=== PATIENT | male | born 1955 | race Caucasian/White ===

== ENCOUNTER 2023-08-08 03:38 | Emergency (ER) | payer MEDICARE, SELFPAY ==
[2023-08-08] VITALS (10 sets, daily range): BP systolic 116–179; BP diastolic 69–105; PULSE 77–105; RESP 15–29; TEMP 36.5–36.7; O2SAT 90–99; BMI 28.7
--- NOTE | 2023-08-08 03:39 | CT_ITS ---
PROCEDURE INFORMATION: Exam: CTA Chest With Contrast Exam date and time: 08/08/2023 3:48 AM Age: 67 years old Clinical indication: Other: Abd and chest pain radiating to back TECHNIQUE: Imaging protocol: Computed tomographic angiography of the chest with contrast. Exam focused on the arteries. 3D rendering (Not supervised by radiologist): MIP and/or 3D reconstructed images were created by the technologist. Radiation optimization: All CT scans at this facility use at least one of these dose optimization techniques: automated exposure control; mA and/or kV adjustment per patient size (includes targeted exams where dose is matched to clinical indication); or iterative reconstruction. Contrast material: ISOUVE 370; Contrast volume: 100 ml; Contrast route: INTRAVENOUS (IV); COMPARISON: CT ANGIO ABDOMEN PELVIS 08/08/2023 03:48 FINDINGS: Pulmonary arteries: Normal. No pulmonary emboli. Aorta: The aorta demonstrates mild atherosclerotic disease. No aortic dissection. Lungs: Mild centrilobular and paraseptal emphysema. Mild scarring and atelectasis in the lower lungs. Pleural spaces: Unremarkable. No pneumothorax. No pleural effusion. Heart: Unremarkable. No cardiomegaly. No pericardial effusion. Lymph nodes: Unremarkable. No enlarged lymph nodes. Bones/joints: Unremarkable. No acute fracture. Soft tissues: Unremarkable. Other findings: Please see separate report for abdomen/pelvis. Stigmata of old granulomatous disease. IMPRESSION: No aortic dissection. COMMENTS: The presence of pulmonary emphysema on CT is an independent risk factor for lung cancer. In the absence of a history or active diagnosis of lung cancer, it is recommended that this patient with emphysema be evaluated for enrollment in a low dose CT lung cancer screening program.
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
--- NOTE | 2023-08-08 03:43 | ED_ITS ---
Discharge Plan Disposition Patient Disposition: Home, Self-Care Chief Complaint: Abdominal Pain Prescriptions Prescriptions: No Action aspirin 81 mg Tablet,Chewable 81 mg PO DAILY metformin 1,000 mg Tablet 1,500 mg PO BID ascorbic acid (vitamin C) [Vitamin C] 1,000 mg Tablet 1 g PO BID carvedilol 12.5 mg Tablet 12.5 mg PO BID Rx Instructions: must administer with a meal/food glipizide 10 mg Tablet 10 mg PO BID ferrous sulfate 325 mg (65 mg iron) Tablet 325 mg PO BID lisinopril 2.5 mg Tablet 2.5 mg PO DAILY vitamin E 1,000 unit Tablet 1 tab PO DAILY Centrum Silver Tablet 1 tab PO DAILY fenofibrate 150 mg Capsule 150 mg PO DAILY Ozempic 1 mg/dose (4 mg/3 mL) Pen Injector 1 mg SQ WEEKLY Referrals Follow up/Referrals: Frandy Daigle MD [Staff Physician] - See instructions (mild hematuria) Activity Restrictions/Add. Instructions Additional Instructions/Restrictions: At this time it was felt you are safe to be discharged home. If new or worsening symptoms please do not hesitate to return the emergency department. Please continue to follow-up with your urologist and manager strategic alliances as discussed. Clinical Impressions Clinical Impression: Acute abdominal pain, Hematuria, Chest pain Instructions Patient Instructions: DI for Acute Abdominal Pain Discharge ED Provider: Armando Sanders General Adult HPI <Nika Marley MD - Last Filed: 08/08/23 06:48> General Chief complaint: Abdominal Pain Stated complaint: abd pain radiating to back and up into chest Time Seen by Provider: 08/08/23 03:39 History of Present Illness HPI narrative: 67-year-old male presents to the ER for concerns of acute onset abdominal and chest pain. Patient states he had similar pain 2 days ago in his abdomen but it spontaneously resolved. He states this pain woke him up approximately 2 hours ago starting in his epigastric region. He states it now radiates both down and up as well as to his back. He states he took a nitroglycerin without resolution of pain and came to the ER. He has not had any vomiting but states he has mild nausea, most recent bowel movement was yesterday, no history of diarrhea or constipation, nonbloody, nonmelanotic stool. Patient did just travel back from [place]. He has 1 cardiac stent, no blood thinners. No dizziness, no numbness, tingling, weakness. Related Data Home Medications Medication Instructions Recorded Confirmed ascorbic acid (vitamin C) 1,000 mg 1 g PO BID 08/08/23 08/08/23 tablet (Vitamin C) aspirin 81 mg chewable tablet 81 mg PO DAILY 08/08/23 08/08/23 carvedilol 12.5 mg tablet 12.5 mg PO BID 08/08/23 08/08/23 fenofibrate 150 mg capsule 150 mg PO DAILY 08/08/23 08/08/23 ferrous sulfate 325 mg (65 mg 325 mg PO BID 08/08/23 08/08/23 iron) tablet glipizide 10 mg tablet 10 mg PO BID 08/08/23 08/08/23 lisinopril 2.5 mg tablet 2.5 mg PO DAILY 08/08/23 08/08/23 metformin 1,000 mg tablet 1,500 mg PO BID 08/08/23 08/08/23 xpoiuxnwisjw-[id number]-xglivw tablet 1 tab PO DAILY 08/08/23 08/08/23 semaglutide 1 mg/dose (4 mg/3 mL) 1 mg SQ WEEKLY 08/08/23 08/08/23 subcutaneous pen injector (Ozempic) vitamin E 1,000 unit tablet 1 tab PO DAILY 08/08/23 08/08/23 Allergies Allergy/AdvReac Type Severity Reaction Status Date / Time No Known Allergies Allergy Verified 08/08/23 03:42 [facility] <Nika Marley MD - Last Filed: 08/08/23 06:48> [facility] Disclaimer: The information contained in this section may have been updated after the patient was seen, as this information can be updated by other users. Social History (Updated 08/08/23 @ 06:48 by Nika Marley MD) Smoking Status: Never smoker alcohol intake: never current occupational status: other Travel in the last 8 weeks: None <Nika Marley MD - Last Filed: 08/08/23 06:48> ROS Obtained: Yes All systems reviewed & no additional complaints except as documented Constitutional Constitutional: Denies chills, Denies fever(s), Denies headache(s) and Denies weakness Eyes Eyes: Denies change in vision ENT Ears, Nose, Mouth, and Throat: Denies dizziness, Denies headache(s), Denies nasal congestion and Denies sore throat Cardiovascular Cardiovascular: Reports chest pain, Denies dyspnea and Denies leg edema Respiratory Respiratory: Denies cough and Denies dyspnea Gastrointestinal Gastrointestingal: Reports abdominal pain and nausea; Denies constipation, diarrhea or vomiting Genitourinary Male Genitourinary: Denies difficulty urinating Musculoskeletal Musculoskeletal: Denies arthralgias, Denies myalgias, Denies numbness and Denies tingling Integumentary/Breasts Skin/Breast: Denies change in pigmentation Neurologic Neurologic: Denies dizziness, Denies headache(s), Denies numbness, Denies tingling and Denies weakness Physical Exam <Nika Marley MD - Last Filed: 08/08/23 06:48> General General appearance: alert and in no apparent distress Head Head exam: atraumatic and normocephalic Eye Eye exam: Present PERRL and EOMI ENT ENT exam: Present mucous membranes moist Neck Neck exam: Present normal inspection and full ROM Chest Chest inspection: Present symmetric chest wall rise Respiratory Respiratory exam: Present normal lung sounds bilaterally; Absent respiratory distress, wheezes or stridor Cardiovascular Cardiovascular exam: Present regular rate and normal rhythm Abdominal Exam Abdominal exam: Present soft, tenderness (diffuse) and guarding; Absent distention, rebound or rigidity Extremities Exam Extremities exam: Present full ROM Neurological Exam Neurological exam: Present alert and oriented X3; Absent motor sensory deficit Psychiatric Psychiatric exam: Present normal affect and normal mood Skin Skin exam: Present warm and dry Medical Decision Making <Nika Marley MD - Last Filed: 08/08/23 06:48> [place] Inquiry Pt receiving controlled substance: No Vital Signs: 08/08/23 03:39 08/08/23 04:02 08/08/23 04:10 Temperature 97.7 F Temperature Source Oral Pulse Rate 77 85 Pulse Rate [Right] 78 Respiratory Rate 22 27 H 15 Blood Pressure 175/96 H 179/105 H Blood Pressure [Right Arm] 146/91 H Blood Pressure Mean [Right Arm] 109 Blood Pressure Source [Right Arm] Automatic Cuff Blood Pressure Position [Right Arm] Sitting 02 Sat by Pulse Oximetry 99 98 96 Oxygen Delivery Method Room Air Room Air Nasal Cannula Oxygen Flow Rate (LPM) 08/08/23 04:30 08/08/23 05:03 08/08/23 05:30 Temperature Temperature Source Pulse Rate 84 91 H 95 H Pulse Rate [Right] Respiratory Rate 20 17 29 H Blood Pressure 178/105 H 136/73 154/97 H Blood Pressure [Right Arm] Blood Pressure Mean [Right Arm] Blood Pressure Source [Right Arm] Blood Pressure Position [Right Arm] 02 Sat by Pulse Oximetry 95 90 L 94 L Oxygen Delivery Method Nasal Cannula Room Air Oxygen Flow Rate (LPM) 08/08/23 06:00 08/08/23 06:30 08/08/23 07:00 Temperature Temperature Source Pulse Rate 99 H 103 H 105 H Pulse Rate [Right] Respiratory Rate 22 19 17 Blood Pressure 154/78 H 133/78 116/69 Blood Pressure [Right Arm] Blood Pressure Mean [Right Arm] Blood Pressure Source [Right Arm] Blood Pressure Position [Right Arm] 02 Sat by Pulse Oximetry 97 96 94 L Oxygen Delivery Method Nasal Cannula Nasal Cannula Nasal Cannula Oxygen Flow Rate (LPM) 3 Lab Data Lab Results 08/08/23 03:44: WBC 6.2, RBC 4.90, Hgb 15.1, Hct 46.2, MCV 94.3 H, MCH 30.8, MCHC 32.7, RDW 14.5, Plt Count 287, MPV 7.6, Neut % (Auto) 65.8, Lymph % (Auto) 22.1, [place] % (Auto) 8.3, Eos % (Auto) 3.2, Baso % (Auto) 0.7, Neut # (Auto) 4.1, Lymph # (Auto) 1.4, [place] # (Auto) 0.5, Eos # (Auto) 0.2, Baso # (Auto) 0.0, PT 10.9, INR 1.01, Sodium 136, Potassium 4.4, Chloride 101, Carbon Dioxide 28, Anion Gap 11.4, BUN 21 H, Creatinine 1.30 H, Estimated Creat Clear 74, Estimated GFR 55 L, Est GFR ( Amer) 66, Glucose 200 H, Lactate 2.2 H, Calcium 9.7, Total Bilirubin 0.6, AST 30, ALT 29, Alkaline Phosphatase 38, Total Creatine Kinase 98, CK-MB (CK-2) 2.0, CK-MB (CK-2) Rel Index 2.0, Troponin I < 0.01, Total Protein 7.6, Albumin 4.6, Globulin 3.0, Albumin/Globulin Ratio 1.5, Lipase 107 08/08/23 04:52: Urine Color Yellow, Urine Appearance Clear, Urine pH 7.0, Ur Specific [place] 1.010, Urine Protein Negative, Urine Glucose (UA) Negative, Urine Ketones Negative, Urine Blood 2+, Urine Nitrate Negative, Urine Bilirubin Negative, Urine Urobilinogen 0.2, Ur Leukocyte Esterase Negative, Urine RBC 10- 20, Urine WBC None, Ur Squamous Epith Cells Occasional, Urine Bacteria Trace 08/08/23 06:40: Troponin I < 0.01 08/08/23 06:45: Lactate 2.2 H 08/08/23 03:44 08/08/23 03:44 Orders (Tests/Meds): ED MEDICATIONS Generic Name Dose Route Start Last Admin Trade Name Freq PRN Reason Stop Dose Admin Sodium Chloride 10 ml 08/08/23 04:08 08/08/23 04:10 Sodium Chloride 0.9% 10ml Syr (Rad Only) IV 09/07/23 04:07 10 ml NEEDED PRN Administration Maintain IV Site Discontinued Medications Generic Name Dose Route Start Last Admin Trade Name Freq PRN Reason Stop Dose Admin Acetaminophen 1,000 mg 08/08/23 04:47 08/08/23 04:48 Acetaminophen 1,000mg/100ml Vial IV 08/08/23 04:48 1,000 mg ONCE ONE Administration Belladonna Alkaloids 60 ml 08/08/23 04:34 08/08/23 04:40 Belladonna Alkaloids 60 Ml Ml PO 08/08/23 04:35 60 ml ONCE ONE Administration Lactated Ringer's 1,000 mls @ 999 mls/hr 08/08/23 04:12 08/08/23 04:18 Lactated Ringer's 1000 Ml Bag IV 08/08/23 05:12 999 mls/hr .Q1H1M ONE Administration Iopamidol 100 ml 08/08/23 04:08 08/08/23 04:09 Iopamidol-370 (76%);100ml Bottle IV 08/08/23 04:09 100 ml ONCE ONE Administration Morphine Sulfate 4 mg 08/08/23 03:39 08/08/23 03:50 Morphine 4mg/Ml Syringe IV 08/08/23 03:40 4 mg ONCE ONE Administration Morphine Sulfate 4 mg 08/08/23 04:04 08/08/23 04:07 Morphine 4mg/Ml Syringe IV 08/08/23 04:05 4 mg ONCE ONE Administration Ondansetron HCl 4 mg 08/08/23 03:39 08/08/23 03:50 Ondansetron 4mg/2ml Vial IV 08/08/23 03:40 4 mg ONCE ONE Administration Sodium Chloride 50 ml 08/08/23 04:08 08/08/23 04:09 0.9 % Sodium Chloride 50 Ml Vial IV 08/08/23 04:09 50 ml ONCE ONE Administration ORDERS Category Date Time Status CT angio abdomen pelvis Stat Cat Scan 08/08/23 03:39 Completed CTA Chest [CT angio chest - dissection] Stat Cat Scan 08/08/23 03:39 Completed Cardiac Enzymes Stat Lab 08/08/23 03:44 Completed Complete Blood Count Auto Diff Stat Lab 08/08/23 03:44 Completed Comprehensive Metabolic Panel Stat Lab 08/08/23 03:44 Completed Lactic Acid Stat Lab 08/08/23 03:44 Completed Lactic Acid Stat Lab 08/08/23 06:45 Completed Lipase Stat Lab 08/08/23 03:44 Completed Prothrombin Time INR Stat Lab 08/08/23 03:44 Completed Troponin I Q3H Lab 08/08/23 06:40 Completed Troponin I Q3H Lab 08/08/23 10:45 Ordered Urinalysis and Microscopic Stat Lab 08/08/23 04:52 Completed Medical Decision Narrative: In summary, this 67-year-old male presents to the emergency department today with chest pain, abdominal pain radiating to the back, severe onset that woke him up from sleep 2 hours prior to arrival. Comorbidities of current condition include history of coronary stent, patient also takes Ozempic. He is increased his overall morbidity. He takes aspirin daily but no other blood thinners. On initial evaluation patient is hemodynamically stable, afebrile, clearly having abdominal pain, diffuse tenderness with guarding, no rebound, cardiopulmonary exam reassuring. Differential diagnosis includes but is not limited to ACS, dissection, mesenteric ischemia, bowel obstruction, pancreatitis, biliary pathology, I considered the possibility of PE with recent travel, however he does not have any leg swelling or findings of DVT on exam, he is not having any shortness of breath. Based on these concerns, I ordered cardiac workup, labs, CT angiography of the chest, abdomen, pelvis.. ECG personally interpreted demonstrates normal sinus rhythm, rate 76, normal axis, normal OK at 153, normal QTc at 400, no STEMI. Patient received morphine, Zofran for treatment initially. He was immediately taken to CT scan after my assessment for emergent imaging. Labs personally reviewed demonstrate no leukocytosis or anemia, platelets normal at 287, PT/INR normal, CMP with normal sodium, potassium, chloride, patient has mild kidney dysfunction, he is receiving IV fluids. He also has lactate elevated at 2.2, fluids are being administered. Lipase normal at 107, reassuring against pancreatitis. Initial troponin undetectably low at less than 0.01. Serial troponins pending. Few red blood cells were present on the urinalysis but there are no findings of infection. Patient does not have any findings of kidney stone on CT scan though I did consider this on my differential as well. He will need outpatient follow-up for slight hematuria. CT angiography of the chest, abdomen, pelvis was personally interpreted, I do not appreciate aortic dissection or mesenteric ischemia. I do not appreciate appendicitis or gallstones, no findings of cholecystitis though the gallbladder is distended. See radiology read for final interpretation. Patient required additional IV morphine for continued severe pain. After reviewing CT findings which do not demonstrate acute surgical pathology, I administered GI cocktail as well. Patient was placed in ED observation at 0450 for serial troponins to rule out evolving myocardial infarction and for continued treatment of abdominal pain. While in ED observation he received IV acetaminophen. He has continued to be on the monitor and recheck frequently. He was placed on nasal cannula due to JG causing desaturations while he slept. He states he is supposed to wear CPAP at home. On reassessment after receiving GI cocktail and IV acetaminophen, he has had significant improvement of symptoms. He is resting comfortably and states his pain is 0 out of 10. Patient handed off to Dr. Sanders at physician shift change for further management disposition pending repeat troponin and repeat lactic acid. <Armando Sanders MD - Last Filed: 08/08/23 07:30> Vital Signs: 08/08/23 03:39 08/08/23 04:02 08/08/23 04:10 Temperature 97.7 F Temperature Source Oral Pulse Rate 77 85 Pulse Rate [Right] 78 Respiratory Rate 22 27 H 15 Blood Pressure 175/96 H 179/105 H Blood Pressure [Right Arm] 146/91 H Blood Pressure Mean [Right Arm] 109 Blood Pressure Source [Right Arm] Automatic Cuff Blood Pressure Position [Right Arm] Sitting 02 Sat by Pulse Oximetry 99 98 96 Oxygen Delivery Method Room Air Room Air Nasal Cannula Oxygen Flow Rate (LPM) 08/08/23 04:30 08/08/23 05:03 08/08/23 05:30 Temperature Temperature Source Pulse Rate 84 91 H 95 H Pulse Rate [Right] Respiratory Rate 20 17 29 H Blood Pressure 178/105 H 136/73 154/97 H Blood Pressure [Right Arm] Blood Pressure Mean [Right Arm] Blood Pressure Source [Right Arm] Blood Pressure Position [Right Arm] 02 Sat by Pulse Oximetry 95 90 L 94 L Oxygen Delivery Method Nasal Cannula Room Air Oxygen Flow Rate (LPM) 08/08/23 06:00 08/08/23 06:30 08/08/23 07:00 Temperature Temperature Source Pulse Rate 99 H 103 H 105 H Pulse Rate [Right] Respiratory Rate 22 19 17 Blood Pressure 154/78 H 133/78 116/69 Blood Pressure [Right Arm] Blood Pressure Mean [Right Arm] Blood Pressure Source [Right Arm] Blood Pressure Position [Right Arm] 02 Sat by Pulse Oximetry 97 96 94 L Oxygen Delivery Method Nasal Cannula Nasal Cannula Nasal Cannula Oxygen Flow Rate (LPM) 3 Lab Data Lab Results 08/08/23 03:44: WBC 6.2, RBC 4.90, Hgb 15.1, Hct 46.2, MCV 94.3 H, MCH 30.8, MCHC 32.7, RDW 14.5, Plt Count 287, MPV 7.6, Neut % (Auto) 65.8, Lymph % (Auto) 22.1, [place] % (Auto) 8.3, Eos % (Auto) 3.2, Baso % (Auto) 0.7, Neut # (Auto) 4.1, Lymph # (Auto) 1.4, [place] # (Auto) 0.5, Eos # (Auto) 0.2, Baso # (Auto) 0.0, PT 10.9, INR 1.01, Sodium 136, Potassium 4.4, Chloride 101, Carbon Dioxide 28, Anion Gap 11.4, BUN 21 H, Creatinine 1.30 H, Estimated Creat Clear 74, Estimated GFR 55 L, Est GFR ( Amer) 66, Glucose 200 H, Lactate 2.2 H, Calcium 9.7, Total Bilirubin 0.6, AST 30, ALT 29, Alkaline Phosphatase 38, Total Creatine Kinase 98, CK-MB (CK-2) 2.0, CK-MB (CK-2) Rel Index 2.0, Troponin I < 0.01, Total Protein 7.6, Albumin 4.6, Globulin 3.0, Albumin/Globulin Ratio 1.5, Lipase 107 08/08/23 04:52: Urine Color Yellow, Urine Appearance Clear, Urine pH 7.0, Ur Specific [place] 1.010, Urine Protein Negative, Urine Glucose (UA) Negative, Urine Ketones Negative, Urine Blood 2+, Urine Nitrate Negative, Urine Bilirubin Negative, Urine Urobilinogen 0.2, Ur Leukocyte Esterase Negative, Urine RBC 10- 20, Urine WBC None, Ur Squamous Epith Cells Occasional, Urine Bacteria Trace 08/08/23 06:40: Troponin I < 0.01 08/08/23 06:45: Lactate 2.2 H Orders (Tests/Meds): ED MEDICATIONS Generic Name Dose Route Start Last Admin Trade Name Freq PRN Reason Stop Dose Admin Sodium Chloride 10 ml 08/08/23 04:08 08/08/23 04:10 Sodium Chloride 0.9% 10ml Syr (Rad Only) IV 09/07/23 04:07 10 ml NEEDED PRN Administration Maintain IV Site Discontinued Medications Generic Name Dose Route Start Last Admin Trade Name Freq PRN Reason Stop Dose Admin Acetaminophen 1,000 mg 08/08/23 04:47 08/08/23 04:48 Acetaminophen 1,000mg/100ml Vial IV 08/08/23 04:48 1,000 mg ONCE ONE Administration Belladonna Alkaloids 60 ml 08/08/23 04:34 08/08/23 04:40 Belladonna Alkaloids 60 Ml Ml PO 08/08/23 04:35 60 ml ONCE ONE Administration Lactated Ringer's 1,000 mls @ 999 mls/hr 08/08/23 04:12 08/08/23 04:18 Lactated Ringer's 1000 Ml Bag IV 08/08/23 05:12 999 mls/hr .Q1H1M ONE Administration Iopamidol 100 ml 08/08/23 04:08 08/08/23 04:09 Iopamidol-370 (76%);100ml Bottle IV 08/08/23 04:09 100 ml ONCE ONE Administration Morphine Sulfate 4 mg 08/08/23 03:39 08/08/23 03:50 Morphine 4mg/Ml Syringe IV 08/08/23 03:40 4 mg ONCE ONE Administration Morphine Sulfate 4 mg 08/08/23 04:04 08/08/23 04:07 Morphine 4mg/Ml Syringe IV 08/08/23 04:05 4 mg ONCE ONE Administration Ondansetron HCl 4 mg 08/08/23 03:39 08/08/23 03:50 Ondansetron 4mg/2ml Vial IV 08/08/23 03:40 4 mg ONCE ONE Administration Sodium Chloride 50 ml 08/08/23 04:08 08/08/23 04:09 0.9 % Sodium Chloride 50 Ml Vial IV 08/08/23 04:09 50 ml ONCE ONE Administration ORDERS Category Date Time Status CT angio abdomen pelvis Stat Cat Scan 08/08/23 03:39 Completed CTA Chest [CT angio chest - dissection] Stat Cat Scan 08/08/23 03:39 Completed Cardiac Enzymes Stat Lab 08/08/23 03:44 Completed Complete Blood Count Auto Diff Stat Lab 08/08/23 03:44 Completed Comprehensive Metabolic Panel Stat Lab 08/08/23 03:44 Completed Lactic Acid Stat Lab 08/08/23 03:44 Completed Lactic Acid Stat Lab 08/08/23 06:45 Completed Lipase Stat Lab 08/08/23 03:44 Completed Prothrombin Time INR Stat Lab 08/08/23 03:44 Completed Troponin I Q3H Lab 08/08/23 06:40 Completed Troponin I Q3H Lab 08/08/23 10:45 Ordered Urinalysis and Microscopic Stat Lab 08/08/23 04:52 Completed HEART Score History (anamnesis): Moderately suspicious ECG: Normal Age: >65 years Risk factors: Atherosclerosis history Troponin: </= normal limit HEART Score: 5 Medical Decision Narrative: In summary, this 67-year-old male presents to the emergency department today with chest pain, abdominal pain radiating to the back, severe onset that woke him up from sleep 2 hours prior to arrival. Comorbidities of current condition include history of coronary stent, patient also takes Ozempic. He is increased his overall morbidity. He takes aspirin daily but no other blood thinners. On initial evaluation patient is hemodynamically stable, afebrile, clearly having abdominal pain, diffuse tenderness with guarding, no rebound, cardiopulmonary exam reassuring. Differential diagnosis includes but is not limited to ACS, dissection, mesenteric ischemia, bowel obstruction, pancreatitis, biliary pathology, I considered the possibility of PE with recent travel, however he does not have any leg swelling or findings of DVT on exam, he is not having any shortness of breath. Based on these concerns, I ordered cardiac workup, labs, CT angiography of the chest, abdomen, pelvis.. ECG personally interpreted demonstrates normal sinus rhythm, rate 76, normal axis, normal [place] at 153, normal QTc at 400, no STEMI. Patient received morphine, Zofran for treatment initially. He was immediately taken to CT scan after my assessment for emergent imaging. Labs personally reviewed demonstrate no leukocytosis or anemia, platelets normal at 287, PT/INR normal, CMP with normal sodium, potassium, chloride, patient has mild kidney dysfunction, he is receiving IV fluids. He also has lactate elevated at 2.2, fluids are being administered. Lipase normal at 107, reassuring against pancreatitis. Initial troponin undetectably low at less than 0.01. Serial troponins pending. Few red blood cells were present on the urinalysis but there are no findings of infection. Patient does not have any findings of kidney stone on CT scan though I did consider this on my differential as well. He will need outpatient follow-up for slight hematuria. CT angiography of the chest, abdomen, pelvis was personally interpreted, I do not appreciate aortic dissection or mesenteric ischemia. I do not appreciate appendicitis or gallstones, no findings of cholecystitis though the gallbladder is distended. See radiology read for final interpretation. Patient required additional IV morphine for continued severe pain. After reviewing CT findings which do not demonstrate acute surgical pathology, I administered GI cocktail as well. Patient was placed in ED observation at 0450 for serial troponins to rule out evolving myocardial infarction and for continued treatment of abdominal pain. While in ED observation he received IV acetaminophen. He has continued to be on the monitor and recheck frequently. He was placed on nasal cannula due to JG causing desaturations while he slept. He states he is supposed to wear CPAP at home. On reassessment after receiving GI cocktail and IV acetaminophen, he has had significant improvement of symptoms. He is resting comfortably and states his pain is 0 out of 10. Patient handed off to Dr. Sanders at physician shift change for further management disposition pending repeat troponin and repeat lactic acid. Armando Sanders: Upon assumption of care patient is hemodynamically stable. Workup reviewed by me, hematologic labs are nonactionable, no significant leukocytosis, mildly elevated creatinine, stable minimally elevated serial lactates, serial troponins undetectably low. Urinalysis interpreted by me, hematuria without evidence of infection. CTA chest shows no evidence of aortic dissection. CT abdomen pelvis shows nonspecific bowel wall thickening, no aortic dissection. Upon repeat evaluation patient was resting in bed with oxygen at baseline with significant resolution of symptoms. Urinalysis has microscopic hematuria. Patient is aware of this and has history of bladder cancer status post intervention and follows with his urologist. Patient will follow-up with urology and cardiology on outpatient basis and is appropriate for discharge at this time. Critical Care <Nika Marley MD - Last Filed: 08/08/23 06:48> Critical Care Time Critical Care Time: No
[2023-08-08] MEDS: ONDANSETRON 4MG/2ML VIAL 4 MG IV (03:50)
[2023-08-08] MEDS: MORPHINE 4MG/ML SYRINGE 4 MG IV ×2 (03:50→04:07)
--- NOTE | 2023-08-08 03:50 | ECG_ITS ---
APPROVED REPORT Exam: Resting ECG HR:76 bpm ECG Measurements Heart Rate 76 AXES OK 153 P 68 QRSd 94 QRS 41 QT 370 T 69 QTc 400 Conclusion SINUS RHYTHM NORMAL ECG UNCONFIRMED REPORT Electronically signed by : ELIF DIAZ, 08/08/2023 04:18:41
--- NOTE | 2023-08-08 03:50 | PC.NURSE ---
Assisted patient via standby assist to restroom at this time. Patient ambulated per patient preference utilizing walker at this time.
[2023-08-08 03:56] LABS: Chloride 101 mmol/L (98-107); Sodium 136 mmol/L (136-145)
[2023-08-08 03:57] LABS: Potassium 4.4 mmoL/L (3.5-5.1)
[2023-08-08 03:59] LABS: Alanine Aminotransferase 29 U/L (12-78); Albumin Level 4.6 g/dl (3.5-5.0); Albumin/Globulin Ratio 1.5 (1.1-1.8); Alkaline Phosphatase 38 U/L (38-126); Anion Gap 11.4 mEq/L (5-15); Aspartate Amino Transferase 30 U/L (17-59); Basophils % 0.7 % (0.1-2.0); Bilirubin,Total 0.6 mg/dl (0.2-1.3); Blood Urea Nitrogen 21 mg/dl (9-20); Carbon Dioxide 28 mmol/L (22.0-30.0); Creatinine Clearance Estimated 74 mL/min (50-200); Eosinophils # 0.2 K/mm3 (0.0-0.4); Eosinophils % 3.2 % (0.1-12.0); Estimated Glomerular Filt Rate 55 ml/min (>60); GFR (African American) 66 ML/MIN (>60); Hematocrit 46.2 % (42.0-52.0); Hemoglobin 15.1 g/dL (14.1-18.0); Lymphocytes # 1.4 K/mm3 (0.7-4.5); Lymphocytes % 22.1 % (10-50); Mean Corpuscular HGB Conc 32.7 g/dL (31.8-35.4); Mean Corpuscular Hemoglobin 30.8 pg (27.0-31.2); Mean Corpuscular Volume 94.3 fl (80-94); Mean Platelet Volume 7.6 fl (7.4-10.4); Monocytes # 0.5 K/mm3 (0.1-1.0); Monocytes % 8.3 % (1.7-9.3); Neutrophils # 4.1 K/mm3 (1.8-7.8); Neutrophils % 65.8 % (37.0-80.0); Platelet Count 287 K/mm3 (142-424); Red Cell Distribution Width 14.5 % (11.5-17.5); Total Protein,Serum 7.6 g/dl (6.3-8.2); White Blood Count 6.2 K/mm3 (4.8-10.8)
[2023-08-08 04:00] LABS: Calcium 9.7 mg/dl (8.4-10.2); Glucose 200 mg/dl (74-100); Lactic Acid 2.2 mmol/L (0.7-2.1)
[2023-08-08 04:03] LABS: Creatine Kinase 98 U/L (55-170); Lipase 107 U/L (23-300)
[2023-08-08 04:04] LABS: INR 1.01 (0.9-1.1); Prothrombin Time 10.9 seconds (10.1-12.5)
[2023-08-08] MEDS: IOPAMIDOL-370 (76%);100ML BOTTLE 100 ML IV (04:09)
[2023-08-08] MEDS: 0.9 % SODIUM CHLORIDE 50 ML VIAL IV (04:09)
[2023-08-08] MEDS: SODIUM CHLORIDE 0.9% 10ML SYR (RAD ONLY) 10 ML IV (04:10)
[2023-08-08 04:15] LABS: Troponin I < 0.01 ng/ml (0.00-0.034)
[2023-08-08] MEDS: LACTATED RINGERS 1000ML 1,000 ML 999 ML IV (04:18)
[2023-08-08] MEDS: BELLADONNA ALKALOIDS 60 ML ML PO (04:40)
[2023-08-08] MEDS: ACETAMINOPHEN 1,000MG/100ML VIAL 1000 MG IV (04:48)
[2023-08-08 04:58] LABS: Microscopic, Urine URINE MICROSCOPIC (MICROSCOPIC)
[2023-08-08 04:59] LABS: Appearance,Urine CLEAR (Clear); Bilirubin,Urine Negative (Negative); Blood, Urine 2+ (Negative); Color,Urine YELLOW (Yellow); Glucose,Urine (UA) Negative (Negative); Ketones,Urine Negative (Negative); Leukocyte Esterase,Urine Negative (Negative); Nitrate,Urine Negative (Negative); Protein,Urine Negative (Negative); Urobilinogen,Urine 0.2 EU/dl (0.2)
[2023-08-08 05:13] LABS: Bacteria,Urine Trace /lpf; Squamous Epithelial Cell,Urine Occasional #/hpf (0-5)
--- NOTE | 2023-08-08 05:17 | PC.NURSE ---
Pt placed on 2lpm via NC due to low o@sat. Improved. CR
--- NOTE | 2023-08-08 06:06 | PC.NURSE ---
Patient is resting with eyes closed in room at this time. Denies any needs at this time. at bedside.
[2023-08-08 07:08] LABS: Lactic Acid 2.2 mmol/L (0.7-2.1)
[2023-08-08 07:13] LABS: Troponin I < 0.01 ng/ml (0.00-0.034)
--- NOTE | 2023-08-08 07:17 | PC.NURSE ---
Rounded on pt. No needs voiced at this time. Pt able to drink water. Call light remains within reach
--- NOTE | 2023-08-08 07:26 | PC.NURSE ---
Dr. Sanders at BS to update pt on results
[2023-08-08 07:49] LABS: Reflex Lactic Add Lactic Reflex
== END 2023-08-08 07:43 | disposition home or self-care (01) ==
PROVIDERS: Emergency Medicine; Emergency Provider Emergency Medicine
DX: R10.13 Epigastric pain (principal); R07.9 Chest pain, unspecified; R31.9 Hematuria, unspecified; G47.33 Obstructive sleep apnea (adult) (pediatric); Z86.79 Personal history of other diseases of the circulatory system; Z95.5 Presence of coronary angioplasty implant and graft
CPT/HCPCS: 71275; 74174; 80053; 81001; 82550; 82553; 83605; 83690; 84484; 85025; 85610; 93005; 96361; 96374; 96375; 99285; J0131; J2270; J2405; J7120; Q9967

== ENCOUNTER 2023-12-14 00:22 | Observation (INO) | payer MEDICARE, SELFPAY ==
[2023-12-14] VITALS (9 sets, daily range): BP systolic 116–186; BP diastolic 77–116; PULSE 87–113; RESP 16–22; TEMP 36.6–36.9; O2SAT 91–99; BMI 28.8; BMI 29.0
--- NOTE | 2023-12-14 00:40 | CT_ITS ---
PROCEDURE INFORMATION: Exam: CTA Chest With Contrast Exam date and time: 12/14/2023 12:54 AM Age: 68 years old Clinical indication: Pain; Chest pressure; Additional info: Severe chest/abd pain TECHNIQUE: Imaging protocol: Computed tomographic angiography of the chest with contrast. Exam focused on the arteries. 3D rendering (Not supervised by radiologist): MIP and/or 3D reconstructed images were created by the technologist. Radiation optimization: All CT scans at this facility use at least one of these dose optimization techniques: automated exposure control; mA and/or kV adjustment per patient size (includes targeted exams where dose is matched to clinical indication); or iterative reconstruction. Contrast material: ISOVUE; Contrast volume: 80 ml; Contrast route: INTRAVENOUS (IV); COMPARISON: CT ANGIO CHEST 08/08/2023 3:48 AM FINDINGS: Pulmonary arteries: Suboptimal evaluation of the peripheral pulmonary artery branches due to suboptimal contrast bolus timing and motion artifact. Otherwise, no evidence of pulmonary emboli. Aorta: Atherosclerotic calcification. No aortic aneurysm. No aortic dissection. Lungs: Unchanged 2 mm right upper lobe nodule (image 46, series 5). Unchanged 5 mm right upper lobe pulmonary nodule (image 65, series 5Unchanged scattered benign calcified granulomas of the left lung. Mild centrilobular and paraseptal emphysematous change of the lungs. Small area left lower lobe discoid atelectasis without pulmonary consolidation Pleural spaces: Unremarkable. No pneumothorax. No pleural effusion. Heart: Mild cardiomegaly. Coronary artery calcification noted. No pericardial effusion. Lymph nodes: 2.2 x 0.9 cm right pretracheal mediastinal lymph with fatty hilum. Slight hilar lymph node enlargement bilaterally. Several of the left hilar lymph nodes are calcified. Bones/joints: Degenerative change of the thoracic spine. No acute fracture. Soft tissues: Unremarkable. IMPRESSION: 1. No evidence of aortic aneurysm or dissection. 2. Mild cardiomegaly. Coronary artery calcification. 3. Emphysematous change of the lungs. Mild left lower lobe discoid atelectasis. No pulmonary consolidation. 4. Unchanged subcentimeter pulmonary nodules of the right upper lobe. For patients at low risk (minimal or absent history of smoking and of other known risk factors), no routine follow-up is indicated. For patients at high risk (history of smoking or of other known risk factors), consider optional CT Chest at 12 months. (Reference: Coleman) 5. Partially calcified left hilar lymph nodes and several benign calcified granulomas of the left lung suggestive for prior granulomatous infection. COMMENTS: The presence of pulmonary emphysema on CT is an independent risk factor for lung cancer. In the absence of a history or active diagnosis of lung cancer, it is recommended that this patient with emphysema be evaluated for enrollment in a low dose CT lung cancer screening program. REFERENCES: Coleman Pagan, et al. Guidelines for Management of Incidental Pulmonary Nodules Detected on CT Images: From the Fleischner Society 2017. Radiology. 2017;284(1):228-243.
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
--- NOTE | 2023-12-14 00:42 | ED_ITS ---
Discharge Plan Disposition Patient Disposition: Home, Self-Care Chief Complaint: Abdominal Pain Prescriptions Prescriptions: No Action aspirin 81 mg Tablet,Chewable 81 mg PO DAILY metformin 1,000 mg Tablet 1,500 mg PO BID ascorbic acid (vitamin C) [Vitamin C] 1,000 mg Tablet 1 g PO BID carvedilol 12.5 mg Tablet 12.5 mg PO BID Rx Instructions: must administer with a meal/food glipizide 10 mg Tablet 10 mg PO BID ferrous sulfate 325 mg (65 mg iron) Tablet 325 mg PO BID lisinopril 2.5 mg Tablet 2.5 mg PO DAILY vitamin E 1,000 unit Tablet 1 tab PO DAILY Centrum Silver Tablet 1 tab PO DAILY fenofibrate 150 mg Capsule 150 mg PO DAILY Ozempic 1 mg/dose (4 mg/3 mL) Pen Injector 1 mg SQ WEEKLY Referrals Follow up/Referrals: Provider,Referral, MD [Primary Care Provider] - See instructions Clinical Impressions Clinical Impression: Enteritis, Pancreatic abnormality, Bile duct abnormality, Lung nodule Instructions Patient Instructions: DI for Acute Abdominal Pain Print Language Print Language: Bengali Discharge ED Provider: Praful Allen General Adult HPI General Chief complaint: Abdominal Pain Stated complaint: food poisoning, abd pain, vomiting, diarrhea Time Seen by Provider: 12/14/23 00:25 Mode of Arrival: Wheelchair Source of Information: Patient Limitations: No Limitations Description of Symptoms (Recalled from ER Triage Doc. by RN): pt reporting severe abdomen pain that began 2 hours ago and has vomitted x2. pt reports a bladder surgery last and had his watson cath removed today. History of Present Illness HPI narrative: 68-year-old male presents for generalized abdominal pain. He just recently had a catheter removed. He had bladder cancer and had a procedure several days ago and not Kg where they scraped the cancer off of the inside of the bladder. He reports that he has been feeling well from that perspective and does not have any significant lower abdominal pain. He reports that his pain is sharp, generalized, intermittent. Reports vomiting at home. Denies diarrhea or constipation. Related Data Home Medications ?Medication ?Instructions ?Recorded ?Confirmed ascorbic acid (vitamin C) 1,000 mg 1 g PO BID 08/08/23 08/08/23 tablet (Vitamin C) aspirin 81 mg chewable tablet 81 mg PO DAILY 08/08/23 08/08/23 carvedilol 12.5 mg tablet 12.5 mg PO BID 08/08/23 08/08/23 fenofibrate 150 mg capsule 150 mg PO DAILY 08/08/23 08/08/23 ferrous sulfate 325 mg (65 mg 325 mg PO BID 08/08/23 08/08/23 iron) tablet glipizide 10 mg tablet 10 mg PO BID 08/08/23 08/08/23 lisinopril 2.5 mg tablet 2.5 mg PO DAILY 08/08/23 08/08/23 metformin 1,000 mg tablet 1,500 mg PO BID 08/08/23 08/08/23 [id number]-[id number] tablet 1 tab PO DAILY 08/08/23 08/08/23 semaglutide 1 mg/dose (4 mg/3 mL) 1 mg SQ WEEKLY 08/08/23 08/08/23 subcutaneous pen injector (Ozempic) vitamin E 1,000 unit tablet 1 tab PO DAILY 08/08/23 08/08/23 Allergies Allergy/AdvReac Type Severity Reaction Status Date / Time No Known Allergies Allergy Verified 08/08/23 03:42 [facility] Disclaimer: The information contained in this section may have been updated after the patient was seen, as this information can be updated by other users. Social History (Updated 08/08/23 @ 06:48 by Nika Marley MD) Smoking Status: Never smoker alcohol intake: never current occupational status: other Travel in the last 8 weeks: None ROS Obtained: Yes All systems reviewed & no additional complaints except as documented Physical Exam General General appearance: alert and in no apparent distress Head Head exam: atraumatic and normocephalic Eye Eye exam: Present normal appearance, PERRL and EOMI ENT ENT exam: Present normal oropharynx and normal external ear exam Neck Neck exam: Present normal inspection and full ROM Chest Chest inspection: Present normal inspection and symmetric chest wall rise; Absent tenderness Respiratory Respiratory exam: Present normal lung sounds bilaterally; Absent respiratory distress Cardiovascular Cardiovascular exam: Present regular rate and normal rhythm Abdominal Exam Abdominal exam: Present soft and tenderness (Generalized); Absent distention or guarding Extremities Exam Extremities exam: Present normal inspection; Absent edema or joint swelling Back Exam Back exam: Present normal inspection; Absent tenderness Neurological Exam Neurological exam: Present alert and oriented X3; Absent motor sensory deficit Psychiatric Psychiatric exam: Present normal affect and normal mood Skin Skin exam: Present warm, dry and normal color Lymphatic Lymphatic Findings: no adenopathy Medical Decision Making Medical Records Medical records reviewed: Yes I reviewed the patient's medical records. Screening: Per USPSTF and CDC recommendations, given the prevalence of disease in our region, it is our hospital?s policy to screen for HIV and viral Hepatitis for all patients aged 18 and over and those with ongoing risk factors. Hugo Inquiry Pt receiving controlled substance: No Hugo was queried for this patient: No Vital Signs: 12/14/23 00:24 12/14/23 01:00 12/14/23 01:30 Temperature 98.5 F Temperature Source Oral Pulse Rate 93 H 93 H Pulse Rate [Right] 87 Respiratory Rate 22 Blood Pressure 176/100 H 172/92 H Blood Pressure [Right Arm] 186/116 H Blood Pressure Mean [Right Arm] 139 02 Sat by Pulse Oximetry 98 99 98 Oxygen Delivery Method Room Air 12/14/23 01:51 Temperature Temperature Source Pulse Rate 91 H Pulse Rate [Right] Respiratory Rate Blood Pressure 165/96 H Blood Pressure [Right Arm] Blood Pressure Mean [Right Arm] 02 Sat by Pulse Oximetry 96 Oxygen Delivery Method Lab Data Lab results reviewed: Yes I reviewed the patient's lab results. Lab Results 12/14/23 00:30: WBC 7.9, RBC 5.04, Hgb 15.4, Hct 45.3, MCV 89.9, MCH 30.5, MCHC 34.0, RDW 13.9, Plt Count 283, MPV 6.6 L, Neut % (Auto) 77.5, Lymph % (Auto) 10.6, Carbon % (Auto) 7.5, Eos % (Auto) 3.6, Baso % (Auto) 0.7, Neut # (Auto) 6.1, Lymph # (Auto) 0.8, Carbon # (Auto) 0.6, Eos # (Auto) 0.3, Baso # (Auto) 0.1, Sodium 136, Potassium 5.1, Chloride 104, Carbon Dioxide 27, Anion Gap 10.1, BUN 14, Creatinine 0.90, Estimated Creat Clear 93, Estimated GFR 84, Est GFR ( Amer) 101, Glucose 219 H, Calcium 9.4, Total Bilirubin 0.9, AST 48, ALT 37, Alkaline Phosphatase < 20 L, Troponin I 0.02, Total Protein 7.7, Albumin 4.7, Globulin 3.0, Albumin/Globulin Ratio 1.6, Lipase 92, HIV 1&2 Antibody Rapid Nonreactive 12/14/23 00:30 12/14/23 00:30 Orders (Tests/Meds): ED MEDICATIONS Generic Name Dose Route Start Last Admin Trade Name Lamine PRN Reason Stop Dose Admin Ondansetron HCl 4 mg 12/14/23 03:30 12/14/23 03:30 Ondansetron 4mg/2ml Vial IV 12/14/23 03:31 4 mg ONCE ONE Administration Discontinued Medications Generic Name Dose Route Start Last Admin Trade Name Lamine PRN Reason Stop Dose Admin Belladonna Alkaloids 60 ml 12/14/23 01:44 12/14/23 01:44 Belladonna Alkaloids 60 Ml Ml PO 12/14/23 01:45 60 ml ONCE ONE Administration Piperacillin Sod/Tazobactam 100 mls @ 200 mls/hr 12/14/23 01:28 12/14/23 01:35 Sod 4.5 gm/ Sodium Chloride IV 12/14/23 01:57 Not Given ONCE ONE Iopamidol 80 ml 12/14/23 01:01 12/14/23 01:02 Iopamidol-370 (76%);100ml Bottle IV 12/14/23 01:02 80 ml ONCE ONE Administration Morphine Sulfate 4 mg 12/14/23 00:40 12/14/23 00:46 Morphine 4mg/Ml Syringe IV 12/14/23 00:41 4 mg ONCE ONE Administration Morphine Sulfate 4 mg 12/14/23 01:38 12/14/23 01:40 Morphine 4mg/Ml Syringe IV 12/14/23 01:39 4 mg ONCE ONE Administration Ondansetron HCl 4 mg 12/14/23 00:40 12/14/23 00:46 Ondansetron 4mg/2ml Vial IV 12/14/23 00:41 4 mg ONCE ONE Administration Oxycodone HCl 5 mg 12/14/23 03:26 12/14/23 03:28 Oxycodone 5mg Immediate Release Tablet PO 12/14/23 03:27 5 mg ONCE ONE Administration Sodium Chloride 50 ml 12/14/23 01:01 12/14/23 01:02 0.9 % Sodium Chloride 50 Ml Vial IV 12/14/23 01:02 50 ml ONCE ONE Administration Sodium Chloride 10 ml 12/14/23 01:01 12/14/23 01:02 Sodium Chloride 0.9% 10ml Syr (Rad Only) IV 12/14/23 01:02 10 ml ONCE ONE Administration ORDERS Category Date Time Status CT angio abdomen pelvis Stat Cat Scan 12/14/23 00:41 Completed CTA Chest [CT angio chest - dissection] Stat Cat Scan 12/14/23 00:40 Completed CBC w/Auto Diff [Complete Blood Count Auto Diff] Stat Lab 12/14/23 00:30 Completed CMP [Comprehensive Metabolic Panel] Stat Lab 12/14/23 00:30 Completed HIV (1&2) Antibody Rapid Stat Lab 12/14/23 00:30 Completed Hep C Ab with Reflex to RNA Stat Lab 12/14/23 00:30 Received Lipase Stat Lab 12/14/23 00:30 Completed Troponin I Q3H Lab 12/14/23 00:30 Completed Troponin I Q3H Lab 12/14/23 03:45 Ordered UA [Urinalysis and Microscopic] Stat Lab 12/14/23 03:26 Ordered Medical Decision Narrative: 68-year-old male with history of recent bladder scraping secondary to bladder cancer presents for generalized abdominal pain. History was obtained via interactive discussion with patient, family. On arrival, patient is [afebrile, hemodynamically stable, satting appropriately, alert, oriented x4, GCS 15], moving all extremities spontaneously. Full physical exam performed and significant for generalized abdominal tenderness Differential includes but is not limited to postoperative complication from recent bladder surgery, obstruction, perforation, gallbladder pathology, acute aortic syndrome. Patient was given morphine and Zofran IV for symptomatic management and correction of underlying abnormalities. Workup initiated including emergent CTA chest abdomen and pelvis, CBC CMP lipase UA. On re-evaluation, patient continues to require intermittent doses of morphine for pain control and additional Zofran. Laboratory workup independently interpreted by me and significant for no significant leukocytosis, normal LFTs and bilirubin, normal renal function, negative lipase. Imaging independently interpreted by me and significant for findings consistent with enteritis. It also shows a stable irregularity of the pancreas and some reticulation of the fat around the proximal common bile duct. See radiology read for full review of final results. [] was considered, but deemed unnecessary due to []. Given patient history, exam and workup, patient's presentation most likely represents []. Procedures Risk/Benefits of Procedure(s) Were Explained: Yes Critical Care Critical Care Time Critical Care Time: No
[2023-12-14 00:46] LABS: Basophils # 0.1 K/mm3 (0-0.2); Basophils % 0.7 % (0.1-2.0); Eosinophils # 0.3 K/mm3 (0.0-0.4); Eosinophils % 3.6 % (0.1-12.0); Hematocrit 45.3 % (42.0-52.0); Hemoglobin 15.4 g/dL (14.1-18.0); Lymphocytes # 0.8 K/mm3 (0.7-4.5); Lymphocytes % 10.6 % (10-50); Mean Corpuscular Hemoglobin 30.5 pg (27.0-31.2); Mean Corpuscular Volume 89.9 fl (80-94); Mean Platelet Volume 6.6 fl (7.4-10.4); Monocytes # 0.6 K/mm3 (0.1-1.0); Monocytes % 7.5 % (1.7-9.3); Neutrophils # 6.1 K/mm3 (1.8-7.8); Neutrophils % 77.5 % (37.0-80.0); Platelet Count 283 K/mm3 (142-424); Red Blood Count 5.04 M/mm3 (4.60-6.20); Red Cell Distribution Width 13.9 % (11.5-17.5); White Blood Count 7.9 K/mm3 (4.8-10.8)
[2023-12-14] MEDS: MORPHINE 4MG/ML SYRINGE 4 MG IV ×3 (00:46→04:25)
[2023-12-14] MEDS: ONDANSETRON 4MG/2ML VIAL 4 MG IV ×3 (00:46→06:40)
[2023-12-14 00:53] LABS: Alanine Aminotransferase 37 U/L (12-78); Albumin Level 4.7 g/dl (3.5-5.0); Albumin/Globulin Ratio 1.6 (1.1-1.8); Anion Gap 10.1 mEq/L (5-15); Aspartate Amino Transferase 48 U/L (17-59); Bilirubin,Total 0.9 mg/dl (0.2-1.3); Blood Urea Nitrogen 14 mg/dl (9-20); Calcium 9.4 mg/dl (8.4-10.2); Carbon Dioxide 27 mmol/L (22.0-30.0); Chloride 104 mmol/L (98-107); Creatinine Clearance Estimated 93 mL/min (50-200); Estimated Glomerular Filt Rate 84 ml/min (>60); GFR (African American) 101 ML/MIN (>60); Glucose 219 mg/dl (74-100); Lipase 92 U/L (23-300); Potassium 5.1 mmoL/L (3.5-5.1); Sodium 136 mmol/L (136-145); Total Protein,Serum 7.7 g/dl (6.3-8.2)
[2023-12-14 00:54] LABS: Alkaline Phosphatase < 20 U/L (38-126)
[2023-12-14] MEDS: SODIUM CHLORIDE 0.9% 10ML SYR (RAD ONLY) 10 ML IV (01:02)
[2023-12-14] MEDS: IOPAMIDOL-370 (76%);100ML BOTTLE 80 ML IV (01:02)
[2023-12-14] MEDS: 0.9 % SODIUM CHLORIDE 50 ML VIAL IV (01:02)
[2023-12-14 01:05] LABS: Troponin I 0.02 ng/ml (0.00-0.034)
[2023-12-14 01:12] LABS: HIV (1&2) Antibody Rapid NONREACTIVE (NONREACTIVE)
--- NOTE | 2023-12-14 01:30 | PC.NURSE ---
patient assisted to bathroom, urine sample collected and sent to lab
[2023-12-14] MEDS: BELLADONNA ALKALOIDS 60 ML ML PO (01:44)
[2023-12-14] MEDS: OXYCODONE 5MG IMMEDIATE RELEASE TABLET 5 MG PO (03:28)
[2023-12-14 03:36] LABS: Microscopic, Urine URINE MICROSCOPIC (MICROSCOPIC)
[2023-12-14 03:38] LABS: Appearance,Urine CLEAR (Clear); Bilirubin,Urine Negative (Negative); Blood, Urine TRACE-I (Negative); Color,Urine YELLOW (Yellow); Glucose,Urine (UA) 1+ (Negative); Ketones,Urine Negative (Negative); Leukocyte Esterase,Urine Negative (Negative); Nitrate,Urine Negative (Negative); PH,Urine 7.5 (5.0-8.5); Protein,Urine TRACE (Negative); Specific Gravity, Urine 1.015 (1.005-1.030)
[2023-12-14 03:46] LABS: WBC,Urine Occasional #/hpf (0-3)
[2023-12-14 04:01] LABS: Troponin I < 0.01 ng/ml (0.00-0.034)
--- NOTE | 2023-12-14 04:12 | US_ITS ---
PROCEDURE INFORMATION: Exam: US Abdomen, Limited; Right Upper Quadrant Exam date and time: 12/14/2023 9:41 AM Age: 68 years old Clinical indication: Abdominal pain; Additional info: Abd pain, abnormal CT bile duct TECHNIQUE: Imaging protocol: Real time ultrasound of the abdomen with image documentation. Limited exam focused on the right upper quadrant. COMPARISON: CT ANGIO ABDOMEN PELVIS 12/14/2023 12:54 AM FINDINGS: Liver: Normal. No masses. Gallbladder: Cholelithiasis. Mild gallbladder wall thickening and pericholecystic fluid Biliary ducts: Common bile duct measures 4 mm Pancreas: Visualized pancreas is unremarkable. Right kidney: Normal. No mass. No hydronephrosis. IMPRESSION: Cholelithiasis with gallbladder wall thickening and pericholecystic fluid. No ductal dilatation.
--- NOTE | 2023-12-14 05:07 | PC.NURSE ---
Patient arrived to floor via wheelchair from ED at 04:39.
[2023-12-14] MEDS: 0.9 % SODIUM CHLORIDE 1000ML 1,000 ML 50 ML IV ×2 (05:13→22:53)
--- NOTE | 2023-12-14 05:49 | P.HP_ITS ---
History of Present Illness *Admission Date: 12/14/23 *Reason for visit:: abdominal pain *History of present illness: Patient is a 68-year-old male with past medical history of diabetes mellitus, bladder cancer who presented to hospital for sudden onset abdominal pain and vomiting. Patient mentions his abdominal pain is generalized intermittent, sharp in nature 8/10 intensity, nonradiating. Patient mentions he has associated vomiting, nonbloody, he feels nauseated intermittently. He denied associated fevers chills. He had abdominal pelvis CTA performed in the emergency department. Did show dilated small bowel loops concerning for enteritis. [facility] Disclaimer: The information contained in this section may have been updated after the patient was seen, as this information can be updated by other users. Medical History (Updated 12/14/23 @ 05:06 by Christina Owens RN) Jugular vein stenosis Bladder cancer Hyperlipidemia Hypertension Diabetes mellitus Surgical History (Updated 12/14/23 @ 05:04 by Christina Owens RN) Stented coronary artery Social History Smoking Status: Never smoker alcohol intake: never current occupational status: retired Travel in the last 8 weeks: None Other Medical History Have you received the Flu Vaccine for this season: Yes Have you received the Pneumonia Vaccine: Yes Review of Systems Review of Systems Review of systems:: pertinent systems reviewed and negative unless documented below Meds Home Medications and Allergies Home Medications ?Medication ?Instructions ?Recorded ?Confirmed ?Type ascorbic acid (vitamin C) 1,000 mg 1 g PO BID 08/08/23 12/14/23 History tablet (Vitamin C) aspirin 81 mg chewable tablet 81 mg PO DAILY 08/08/23 12/14/23 History carvedilol 12.5 mg tablet 12.5 mg PO BID 08/08/23 12/14/23 History fenofibrate 150 mg capsule 150 mg PO DAILY 08/08/23 12/14/23 History ferrous sulfate 325 mg (65 mg 325 mg PO BID 08/08/23 12/14/23 History iron) tablet glipizide 10 mg tablet 10 mg PO BID 08/08/23 12/14/23 History lisinopril 2.5 mg tablet 2.5 mg PO DAILY 08/08/23 12/14/23 History metformin 1,000 mg tablet 1,500 mg PO BID 08/08/23 12/14/23 History xzzplegnfrhy-odjlzdxx-dvazmz tablet 1 tab PO DAILY 08/08/23 12/14/23 History semaglutide 1 mg/dose (4 mg/3 mL) 2 mg SQ WEEKLY 08/08/23 12/14/23 History subcutaneous pen injector (Ozempic) vitamin E 1,000 unit tablet 1 tab PO DAILY 08/08/23 12/14/23 History New Prescriptions to Start Prescriptions: Allergies Allergy/AdvReac Type Severity Reaction Status Date / Time niacin Allergy Rash Verified 12/14/23 05:01 phenazopyridine Allergy Rash Verified 12/14/23 05:01 [From Pyridium] Exam Data for Last 24 hours Vital signs and Labs for Last 24 Hours: Temp Pulse Resp BP Pulse Ox O2 Del Method 98.1 F 102 H 16 167/100 H 91 L Room Air 12/14/23 04:40 12/14/23 04:40 12/14/23 04:40 12/14/23 04:40 12/14/23 04:40 12/14/23 05:00 Laboratory Results - last 24 hr 12/14/23 00:30: WBC 7.9, RBC 5.04, Hgb 15.4, Hct 45.3, MCV 89.9, MCH 30.5, MCHC 34.0, RDW 13.9, Plt Count 283, MPV 6.6 L, Neut % (Auto) 77.5, Lymph % (Auto) 10.6, [place] % (Auto) 7.5, Eos % (Auto) 3.6, Baso % (Auto) 0.7, Neut # (Auto) 6.1, Lymph # (Auto) 0.8, [place] # (Auto) 0.6, Eos # (Auto) 0.3, Baso # (Auto) 0.1, Sodium 136, Potassium 5.1, Chloride 104, Carbon Dioxide 27, Anion Gap 10.1, BUN 14, Creatinine 0.90, Estimated Creat Clear 93, Estimated GFR 84, Est GFR (A frican Amer) 101, Glucose 219 H, Calcium 9.4, Total Bilirubin 0.9, AST 48, ALT 37, Alkaline Phosphatase < 20 L, Troponin I 0.02, Total Protein 7.7, Albumin 4.7, Globulin 3.0, Albumin/Globulin Ratio 1.6, Lipase 92, HIV 1&2 Antibody Rapid Nonreactive 12/14/23 01:30: Urine Color Yellow, Urine Appearance Clear, Urine pH 7.5, Ur Specific [place] 1.015, Urine Protein Trace, Urine Glucose (UA) 1+, Urine Ketones Negative, Urine Blood Trace-i, Urine Nitrate Negative, Urine Bilirubin Negative, Urine Urobilinogen 1.0, Ur Leukocyte Esterase Negative, Urine RBC 5- 10, Urine WBC Occasional, Ur Squamous Epith Cells 3-5, Urine Bacteria None 12/14/23 03:32: Troponin I < 0.01 I & O for Last 24 hours: Intake & Output 12/11/23 12/12/23 12/13/23 12/14/23 23:59 23:59 23:59 23:59 Output Total 150 / 150 Balance -150 / -150 Weight 94.03 kg Constitutional Constitutional: no acute distress *Routine HEENT Exam Head: Present normocephalic Eye: Present EOMI and PERRL ENT: Present mucous membranes moist *Routine Neck Exam Neck: Present supple; Absent lymphadenopathy *Routine Respiratory Exam Respiratory: Present CTA bilaterally *Routine Cardiovascular Exam Cardiovascular: Present RRR *Routine Abdominal Exam Abdominal: Present soft, normoactive bowel sounds and tenderness *Routine Rectal Exam Rectal:: deferred *Routine Genitalia Exam Genitalia:: deferred *Routine Extremities Exam Extremities: Absent cyanosis, clubbing or edema *Routine Skin Exam Skin: Present warm; Absent rash *Routine Neurological Exam Neurological: Present alert and oriented X3 Assessment and Plan *Assessment and plan (1) Enteritis: Status: Acute Category: Medical Code(s): K52.9 - Noninfective gastroenteritis and colitis, unspecified (2) Bile duct abnormality: Status: Acute Category: Medical Code(s): K83.9 - Disease of biliary tract, unspecified (3) Acute abdominal pain: Status: Acute Category: Medical Code(s): R10.9 - Unspecified abdominal pain Plan Patient is a 68-year-old male with past medical history of diabetes mellitus, bladder cancer who presented to hospital for sudden onset abdominal pain and vomiting. Patient mentions his abdominal pain is generalized intermittent, sharp in nature 8/10 intensity, nonradiating. Patient mentions he has associated vomiting, nonbloody, he feels nauseated intermittently. He denied associated fevers chills. He had abdominal pelvis CTA performed in the emergency department. Did show dilated small bowel loops concerning for enteritis. Assessment and plan Abdominal pain suspect due to enteritis Fat reticulation around common bile duct on CT abdomen pelvis Post surgical changes urinary bladder on CT abdomen pelvis N.p.o. for now Start IV fluids Pain control As needed Zofran Start empirical antibiotics with Rocephin, Flagyl CT abdomen pelvis performed in ED did not show postsurgical changes on urinary bladder, enteritis, fat reticulation around common bile duct-order right upper quadrant ultrasound, no signs of ischemic colitis CTA chest was also performed in ED-negative for PE Monitor and replace electrolytes Hyperglycemia in the setting of diabetes mellitus Order insulin sliding scale Lactic acidosis Monitor lactic acid DVT prophylaxis-on Lovenox
[2023-12-14] MEDS: CEFTRIAXONE 1 GM 1 GM in 0.9 % SODIUM CHLORIDE 50 ML IV (06:02)
[2023-12-14 06:14] LABS: POC Glucose,Bedside 242 (70-110)
[2023-12-14] MEDS: humaLOG 100 UNITS/ML 10ML VIAL (SSI) SUBCUT ×4 (06:36→20:56)
[2023-12-14] MEDS: METRONIDAZ/SOD CHL 500 MG/100 ML PIGGYBACK 100 MG IV ×3 (06:36→20:59)
[2023-12-14] MEDS: MORPHINE 2MG/ML SYRINGE 1 MG IV (06:40)
[2023-12-14 06:46] LABS: Basophils % 0.3 % (0.1-2.0); Eosinophils # 0.1 K/mm3 (0.0-0.4); Eosinophils % 0.6 % (0.1-12.0); Hematocrit 44.8 % (42.0-52.0); Hemoglobin 15.2 g/dL (14.1-18.0); Lymphocytes # 0.7 K/mm3 (0.7-4.5); Lymphocytes % 6.3 % (10-50); Mean Corpuscular Hemoglobin 30.9 pg (27.0-31.2); Mean Corpuscular Volume 91.1 fl (80-94); Mean Platelet Volume 6.6 fl (7.4-10.4); Monocytes # 0.5 K/mm3 (0.1-1.0); Monocytes % 4.9 % (1.7-9.3); Neutrophils # 9.8 K/mm3 (1.8-7.8); Neutrophils % 87.9 % (37.0-80.0); Platelet Count 251 K/mm3 (142-424); Red Blood Count 4.92 M/mm3 (4.60-6.20); Red Cell Distribution Width 14.1 % (11.5-17.5); White Blood Count 11.1 K/mm3 (4.8-10.8)
[2023-12-14 06:52] LABS: MANUAL DIFFERENTIAL MANUAL DIFFERENTIAL (MANUAL DIFF)
[2023-12-14 07:05] LABS: Anion Gap 9.9 mEq/L (5-15); Blood Urea Nitrogen 13 mg/dl (9-20); Carbon Dioxide 25 mmol/L (22.0-30.0); Chloride 104 mmol/L (98-107); Creatinine Clearance Estimated 93 mL/min (50-200); Estimated Glomerular Filt Rate 96 ml/min (>60); GFR (African American) 116 ML/MIN (>60); Glucose 252 mg/dl (74-100); Potassium 3.9 mmoL/L (3.5-5.1); Sodium 135 mmol/L (136-145)
--- NOTE | 2023-12-14 07:20 | HMH.PHAINT1 ---
Pharmacy Intervention Comments: Home medications verified using list from pharmacy.
[2023-12-14 08:21] LABS: Lymphocytes % 8 % (10-50); Monocytes % 3 % (2-9); Neutrophils % 89 % (42-76); Total Cells Counted 100
[2023-12-14 08:22] LABS: Platelet Estimate Normal; RBC Morphology Normal
--- NOTE | 2023-12-14 08:40 | P.PN_ITS ---
Subjective *Date: 12/14/23 *Time: 11:19 Interval history: Patient states he is feeling this morning. No nausea or vomiting overnight. Bowel movement last night. Reports it was firm. On room air. Afebrile this morning. Open to trying liquid diet today. Medical Exam Vital signs and Labs for Last 24 Hours: Vital Signs Temp Pulse Pulse Resp BP BP Pulse Ox 12/14/23 07:42 98.3 F 110 H 18 176/92 H 95 12/14/23 06:50 12/14/23 05:00 12/14/23 04:40 98.1 F 102 H 16 167/100 H 91 L 12/14/23 04:30 97.8 F 91 H 18 167/100 H 12/14/23 01:51 91 H 165/96 H 96 12/14/23 01:30 93 H 172/92 H 98 12/14/23 01:00 93 H 176/100 H 99 12/14/23 00:24 98.5 F 87 22 186/116 H 98 O2 Del Method 12/14/23 07:42 Room Air 12/14/23 06:50 Room Air 12/14/23 05:00 Room Air 12/14/23 04:40 Room Air 12/14/23 04:30 Room Air 12/14/23 01:51 12/14/23 01:30 12/14/23 01:00 12/14/23 00:24 Room Air Intake and Output 12/13/23 12/14/23 12/14/23 23:59 07:59 15:59 Output Total 150 / 150 Balance -150 / -150 Output: Output, Urine Amount 150 / 150 Other: Number of Unmeasured Voids 1 Weight 94.03 kg Patient Weight 12/14/23 23:59 Weight 94.03 kg Laboratory Results - last 24 hr 12/14/23 00:30: WBC 7.9, RBC 5.04, Hgb 15.4, Hct 45.3, MCV 89.9, MCH 30.5, MCHC 34.0, RDW 13.9, Plt Count 283, MPV 6.6 L, Neut % (Auto) 77.5, Lymph % (Auto) 10.6, [place] % (Auto) 7.5, Eos % (Auto) 3.6, Baso % (Auto) 0.7, Neut # (Auto) 6.1, Lymph # (Auto) 0.8, [place] # (Auto) 0.6, Eos # (Auto) 0.3, Baso # (Auto) 0.1, Sodium 136, Potassium 5.1, Chloride 104, Carbon Dioxide 27, Anion Gap 10.1, BUN 14, Creatinine 0.90, Estimated Creat Clear 93, Estimated GFR 84, Est GFR ( Amer) 101, Glucose 219 H, Calcium 9.4, Total Bilirubin 0.9, AST 48, ALT 37, Alkaline Phosphatase < 20 L, Troponin I 0.02, Total Protein 7.7, Albumin 4.7, Globulin 3.0, Albumin/Globulin Ratio 1.6, Lipase 92, HIV 1&2 Antibody Rapid Nonreactive 12/14/23 01:30: Urine Color Yellow, Urine Appearance Clear, Urine pH 7.5, Ur Specific [place] 1.015, Urine Protein Trace, Urine Glucose (UA) 1+, Urine Ketones Negative, Urine Blood Trace-i, Urine Nitrate Negative, Urine Bilirubin Negative, Urine Urobilinogen 1.0, Ur Leukocyte Esterase Negative, Urine RBC 5- 10, Urine WBC Occasional, Ur Squamous Epith Cells 3-5, Urine Bacteria None 12/14/23 03:32: Troponin I < 0.01 12/14/23 06:07: POC Glucose 242 H 12/14/23 06:08: WBC 11.1 H D, RBC 4.92, Hgb 15.2, Hct 44.8, MCV 91.1, MCH 30.9, MCHC 34.0, RDW 14.1, Plt Count 251, MPV 6.6 L, Neut % (Auto) 87.9 H, Lymph % (Auto) 6.3 L, [place] % (Auto) 4.9, Eos % (Auto) 0.6, Baso % (Auto) 0.3, Neut # (Auto) 9.8 H, Lymph # (Auto) 0.7, [place] # (Auto) 0.5, Eos # (Auto) 0.1, Baso # (Auto) 0.0, Total Counted 100, Neutrophils % (Manual) 89 H, Lymphocytes % (Manual) 8 L, Monocytes % (Manual) 3, Platelet Estimate Normal, RBC Morphology Normal, Sodium 135 L, Potassium 3.9 D, Chloride 104, Carbon Dioxide 25, Anion Gap 9.9, BUN 13, Creatinine 0.80, Estimated Creat Clear 93, Estimated GFR 96, Est GFR ( Amer) 116, Glucose 252 H, Calcium 9.0 I & O for Labs for Last 24 Hours: Intake & Output 12/11/23 12/12/23 12/13/23 12/14/23 23:59 23:59 23:59 23:59 Output Total 150 / 150 Balance -150 / -150 Weight 94.03 kg Constitutional: Present no acute distress, average body habitus and cooperative Head: Present atraumatic and normocephalic ENT: Present normal exam Respiratory: Present normal respiratory effort; Absent rhonchi, wheezes or crackles Cardiac: Present Reg Rate and Rhythm GI: Present soft, tenderness (Right sided tenderness) and normal bowel sounds; Absent distention Extremities: Present normal inspection and full ROM Skin: Present intact; Absent erythema Neuro: Present Grossly Intact, alert, awake, oriented x 3 and moves all extremities Assessment and Plan *Assessment and plan (1) Cholecystitis: Status: Acute Category: Medical Code(s): K81.9 - Cholecystitis, unspecified (2) Enteritis: Status: Acute Category: Medical Code(s): K52.9 - Noninfective gastroenteritis and colitis, unspecified (3) Bile duct abnormality: Status: Acute Category: Medical Code(s): K83.9 - Disease of biliary tract, unspecified (4) Acute abdominal pain: Status: Acute Category: Medical Code(s): R10.9 - Unspecified abdominal pain Plan Patient is a 68-year-old male with past medical history of diabetes mellitus, bladder cancer who presented to hospital for sudden onset abdominal pain and vomiting. Patient mentions his abdominal pain is generalized intermittent, sharp in nature 8/10 intensity, nonradiating. Patient mentions he has associated vomiting, nonbloody, he feels nauseated intermittently. He denied associated fevers chills. He had abdominal pelvis CTA performed in the emergency department. Did show dilated small bowel loops concerning for enteritis. Right upper quadrant ultrasound obtained this morning. Concern for cholecystitis with sludge, stones, pericholecystic fluid per my review. Formal read still pending. Surgery consulted. Continues to require inpatient management. Problems addressed as follows: Cholecystitis Abdominal pain suspect due to enteritis Fat reticulation around common bile duct on CT abdomen pelvis Post surgical changes urinary bladder on CT abdomen pelvis -Surgery consulted, further management pending their recommendations -Continue n.p.o. status - Continue ceftriaxone 1 g daily IV along with Flagyl 500 mg every 8 hours IV for infection. - Continue morphine 2 mg IV every 2 hours as needed for pain, monitor -Zofran 4 mg IV as needed every [address] abdomen pelvis performed in ED did not show postsurgical changes on urinary bladder, enteritis, fat reticulation around common bile duct-order right upper quadrant ultrasound, no signs of ischemic colitis; CTA chest was also performed in ED-negative for PE Monitor and replace electrolytes per protocol Hyperglycemia in the setting of diabetes mellitus: Sliding scale insulin with fingersticks ACHS order insulin sliding scale DVT prophylaxis-on Lovenox N.p.o. Full code
[2023-12-14] MEDS: ENOXAPARIN 40MG/0.4ML SYRINGE 40 MG SUBCUT (09:31)
[2023-12-14 11:59] LABS: POC Glucose,Bedside 257 (70-110)
--- NOTE | 2023-12-14 13:37 | P.CONS_ITS ---
History of Present Illness *Admission Date: 12/14/23 *Reason for visit:: Possible cholecystitis *History of present illness: This is a 68-year-old gentleman seen in consultation from primary service for evaluation regarding possible gallbladder disease. She HPI forwarded from admission H&P below. Currently, the patient feels much better . He states that he is still recovering from transurethral bladder cancer resection last week ([place], [place]) and wishes to hold off on more surgery if possible . He also states that he feels somewhat more comfortable undergoing surgery if needed after being seen again by the urologist if possible . Forwarded from admission H&P: Patient is a 68-year-old male with past medical history of diabetes mellitus, bladder cancer who presented to hospital for sudden onset abdominal pain and vomiting. Patient mentions his abdominal pain is generalized intermittent, sharp in nature 8/10 intensity, nonradiating. Patient mentions he has associated vomiting, nonbloody, he feels nauseated intermittently. He denied associated fevers chills. He had abdominal pelvis CTA performed in the emergency department. Did show dilated small bowel loops concerning for enteritis. [facility] Disclaimer: The information contained in this section may have been updated after the patient was seen, as this information can be updated by other users. Medical History (Updated 12/14/23 @ 11:20 by Phi Gao MD) Jugular vein stenosis Bladder cancer Hyperlipidemia Hypertension Diabetes mellitus Surgical History (Updated 12/14/23 @ 05:04 by Christina Owens RN) Stented coronary artery Social History Smoking Status: Never smoker alcohol intake: never current occupational status: retired Travel in the last 8 weeks: None Meds Home Medications and Allergies Home Medications ?Medication ?Instructions ?Recorded ?Confirmed ?Type ascorbic acid (vitamin C) 1,000 mg 1 g PO BID 08/08/23 12/14/23 History tablet (Vitamin C) aspirin 81 mg chewable tablet 81 mg PO DAILY 08/08/23 12/14/23 History carvedilol 12.5 mg tablet 12.5 mg PO BID 08/08/23 12/14/23 History fenofibrate 150 mg capsule 150 mg PO DAILY 08/08/23 12/14/23 History ferrous sulfate 325 mg (65 mg 325 mg PO BID 08/08/23 12/14/23 History iron) tablet glipizide 10 mg tablet 10 mg PO BID 08/08/23 12/14/23 History lisinopril 2.5 mg tablet 2.5 mg PO DAILY 08/08/23 12/14/23 History metformin 1,000 mg tablet 1,000 mg PO BID 08/08/23 12/14/23 History qmvhdwaihfvc-mlkltvrg-rqvade tablet 1 tab PO DAILY 08/08/23 12/14/23 History semaglutide 1 mg/dose (4 mg/3 mL) 2 mg SQ WEEKLY 08/08/23 12/14/23 History subcutaneous pen injector (Ozempic) vitamin E 1,000 unit tablet 1 tab PO DAILY 08/08/23 12/14/23 History atorvastatin 40 mg tablet 40 mg PO DAILY 12/14/23 12/14/23 History New Prescriptions to Start Prescriptions: Allergies Allergy/AdvReac Type Severity Reaction Status Date / Time niacin Allergy Rash Verified 12/14/23 05:01 phenazopyridine Allergy Rash Verified 12/14/23 05:01 [From Pyridium] Exam (Inpt) Vital signs and Labs for Last 24 Hours: Temp Pulse Resp BP Pulse Ox O2 Del Method 98.3 F 110 H 18 176/92 H 95 Room Air 12/14/23 07:42 12/14/23 07:42 12/14/23 07:42 12/14/23 07:42 12/14/23 07:42 12/14/23 11:00 Laboratory Results - last 24 hr 12/14/23 00:30: WBC 7.9, RBC 5.04, Hgb 15.4, Hct 45.3, MCV 89.9, MCH 30.5, MCHC 34.0, RDW 13.9, Plt Count 283, MPV 6.6 L, Neut % (Auto) 77.5, Lymph % (Auto) 10.6, [place] % (Auto) 7.5, Eos % (Auto) 3.6, Baso % (Auto) 0.7, Neut # (Auto) 6.1, Lymph # (Auto) 0.8, [place] # (Auto) 0.6, Eos # (Auto) 0.3, Baso # (Auto) 0.1, Sodium 136, Potassium 5.1, Chloride 104, Carbon Dioxide 27, Anion Gap 10.1, BUN 14, Creatinine 0.90, Estimated Creat Clear 93, Estimated GFR 84, Est GFR ( Amer) 101, Glucose 219 H, Calcium 9.4, Total Bilirubin 0.9, AST 48, ALT 37, Alkaline Phosphatase < 20 L, Troponin I 0.02, Total Protein 7.7, Albumin 4.7, Globulin 3.0, Albumin/Globulin Ratio 1.6, Lipase 92, HIV 1&2 Antibody Rapid Nonreactive 12/14/23 01:30: Urine Color Yellow, Urine Appearance Clear, Urine pH 7.5, Ur Specific [place] 1.015, Urine Protein Trace, Urine Glucose (UA) 1+, Urine Ketones Negative, Urine Blood Trace-i, Urine Nitrate Negative, Urine Bilirubin Negative, Urine Urobilinogen 1.0, Ur Leukocyte Esterase Negative, Urine RBC 5- 10, Urine WBC Occasional, Ur Squamous Epith Cells 3-5, Urine Bacteria None 12/14/23 03:32: Troponin I < 0.01 12/14/23 06:07: POC Glucose 242 H 12/14/23 06:08: WBC 11.1 H D, RBC 4.92, Hgb 15.2, Hct 44.8, MCV 91.1, MCH 30.9, MCHC 34.0, RDW 14.1, Plt Count 251, MPV 6.6 L, Neut % (Auto) 87.9 H, Lymph % (Auto) 6.3 L, [place] % (Auto) 4.9, Eos % (Auto) 0.6, Baso % (Auto) 0.3, Neut # (Auto) 9.8 H, Lymph # (Auto) 0.7, [place] # (Auto) 0.5, Eos # (Auto) 0.1, Baso # (Auto) 0.0, Total Counted 100, Neutrophils % (Manual) 89 H, Lymphocytes % (Manual) 8 L, Monocytes % (Manual) 3, Platelet Estimate Normal, RBC Morphology Normal, Sodium 135 L, Potassium 3.9 D, Chloride 104, Carbon Dioxide 25, Anion Gap 9.9, BUN 13, Creatinine 0.80, Estimated Creat Clear 93, Estimated GFR 96, Est GFR ( Amer) 116, Glucose 252 H, Calcium 9.0 12/14/23 11:52: POC Glucose 257 H I & O for Labs for Last 24 Hours: Intake & Output 12/12/23 12/13/23 12/14/23 12/15/23 11:59 11:59 11:59 11:59 Output Total 550 / 550 Balance -550 / -550 Weight 207 lb 4.8 oz Constitutional: no acute distress Respiratory: Absent respiratory distress GI: Present soft and tenderness Comments:: Mild global tenderness to deep palpation with some increased tenderness in the epigastric region. Extremities: Present full ROM Skin: Present intact Neuro: Present alert and oriented x 3 Results Labs 12/14/23 06:08 12/14/23 06:08 Labs: Laboratory Results - last 24 hr 12/14/23 00:30: WBC 7.9, RBC 5.04, Hgb 15.4, Hct 45.3, MCV 89.9, MCH 30.5, MCHC 34.0, RDW 13.9, Plt Count 283, MPV 6.6 L, Neut % (Auto) 77.5, Lymph % (Auto) 10.6, [place] % (Auto) 7.5, Eos % (Auto) 3.6, Baso % (Auto) 0.7, Neut # (Auto) 6.1, Lymph # (Auto) 0.8, [place] # (Auto) 0.6, Eos # (Auto) 0.3, Baso # (Auto) 0.1, Sodium 136, Potassium 5.1, Chloride 104, Carbon Dioxide 27, Anion Gap 10.1, BUN 14, Creatinine 0.90, Estimated Creat Clear 93, Estimated GFR 84, Est GFR ( Amer) 101, Glucose 219 H, Calcium 9.4, Total Bilirubin 0.9, AST 48, ALT 37, Alkaline Phosphatase < 20 L, Troponin I 0.02, Total Protein 7.7, Albumin 4.7, Globulin 3.0, Albumin/Globulin Ratio 1.6, Lipase 92, HIV 1&2 Antibody Rapid Nonreactive 12/14/23 01:30: Urine Color Yellow, Urine Appearance Clear, Urine pH 7.5, Ur Specific [place] 1.015, Urine Protein Trace, Urine Glucose (UA) 1+, Urine Ketones Negative, Urine Blood Trace-i, Urine Nitrate Negative, Urine Bilirubin Negative, Urine Urobilinogen 1.0, Ur Leukocyte Esterase Negative, Urine RBC 5- 10, Urine WBC Occasional, Ur Squamous Epith Cells 3-5, Urine Bacteria None 12/14/23 03:32: Troponin I < 0.01 12/14/23 06:07: POC Glucose 242 H 12/14/23 06:08: WBC 11.1 H D, RBC 4.92, Hgb 15.2, Hct 44.8, MCV 91.1, MCH 30.9, MCHC 34.0, RDW 14.1, Plt Count 251, MPV 6.6 L, Neut % (Auto) 87.9 H, Lymph % (Auto) 6.3 L, [place] % (Auto) 4.9, Eos % (Auto) 0.6, Baso % (Auto) 0.3, Neut # (Auto) 9.8 H, Lymph # (Auto) 0.7, [place] # (Auto) 0.5, Eos # (Auto) 0.1, Baso # (Auto) 0.0, Total Counted 100, Neutrophils % (Manual) 89 H, Lymphocytes % (Manual) 8 L, Monocytes % (Manual) 3, Platelet Estimate Normal, RBC Morphology Normal, Sodium 135 L, Potassium 3.9 D, Chloride 104, Carbon Dioxide 25, Anion Gap 9.9, BUN 13, Creatinine 0.80, Estimated Creat Clear 93, Estimated GFR 96, Est GFR ( Amer) 116, Glucose 252 H, Calcium 9.0 12/14/23 11:52: POC Glucose [address] scan - abdomen: report reviewed and image reviewed CT scan - pelvis: report reviewed and image reviewed US - abdomen: report reviewed and image reviewed Assessment and Plan *Assessment and plan (1) Cholecystitis: Status: Acute Category: Medical Code(s): K81.9 - Cholecystitis, unspecified (2) Enteritis: Status: Acute Category: Medical Code(s): K52.9 - Noninfective gastroenteritis and colitis, unspecified Plan I have had a long discussion with the patient concerning the risks and benefits of cholecystectomy. He wishes to hold off for now if possible . He states that he is also somewhat concerned about the possibility of undergoing surgery so soon after (his) last surgery . No need for emergent intervention Continue management as per primary service Consider referral to general surgeon in [facility] (note recent urologic intervention)
[2023-12-14] MEDS: ACETAMINOPHEN 325MG TAB 650 MG PO ×2 (14:33→21:12)
[2023-12-14] MEDS: IBUPROFEN 600 MG TABLET PO ×2 (15:46→22:53)
[2023-12-14 16:34] LABS: POC Glucose,Bedside 236 (70-110)
--- NOTE | 2023-12-14 16:57 | PC.NURSE ---
Pt alert and oriented x4. Pt has no complaints of N/V this shift. Pt has not had bowel movement this shift so unable to get stool sample at this time. Pt c/o headache and was medicated per MAR. Pt is very tired but stated its too hard to sleep in the hosptial with the interruptions. requested to speak with MD woodruff about plan for pt care so this nurse spoke with Murray and he spoke with family to update. Pt diet upgraded to low fat diet, pt tolerating this well. PT resting in bed comfortably with no complaints at this time.
[2023-12-14 21:10] LABS: POC Glucose,Bedside 212 (70-110)
[2023-12-15 04:00] VITALS: BP 145/83; PULSE 102; RESP 16; TEMP 37.1; O2SAT 95; BMI 29.0
--- NOTE | 2023-12-15 04:00 | PC.NURSE ---
68 yo male pt is A/O X 4. He was medicated for complaints of headache earlier in shift. Tylenol was ineffective. Ibuprofen given per MAR with relief. Pt is up to BR independently. He has denied any other pain , discomfort, N/V/D. Pt was able to sleep this shift. FSBS 212 at 9 pm, covered with 7 units per MAR. VSS for pt
[2023-12-15] MEDS: METRONIDAZ/SOD CHL 500 MG/100 ML PIGGYBACK 100 MG IV (05:09)
[2023-12-15] MEDS: CEFTRIAXONE 1 GM 1 GM in 0.9 % SODIUM CHLORIDE 50 ML IV (05:42)
[2023-12-15] MEDS: humaLOG 100 UNITS/ML 10ML VIAL (SSI) SUBCUT ×2 (05:47→10:54)
[2023-12-15 07:07] LABS: Basophils % 0.2 % (0.1-2.0); Eosinophils # 0.2 K/mm3 (0.0-0.4); Eosinophils % 1.9 % (0.1-12.0); Hematocrit 41.8 % (42.0-52.0); Hemoglobin 14.1 g/dL (14.1-18.0); Lymphocytes # 0.6 K/mm3 (0.7-4.5); Lymphocytes % 5.4 % (10-50); Mean Corpuscular HGB Conc 33.8 g/dL (31.8-35.4); Mean Corpuscular Hemoglobin 31.3 pg (27.0-31.2); Mean Corpuscular Volume 92.4 fl (80-94); Mean Platelet Volume 6.7 fl (7.4-10.4); Monocytes # 0.8 K/mm3 (0.1-1.0); Monocytes % 6.9 % (1.7-9.3); Neutrophils # 10.1 K/mm3 (1.8-7.8); Neutrophils % 85.6 % (37.0-80.0); Platelet Count 220 K/mm3 (142-424); Red Blood Count 4.53 M/mm3 (4.60-6.20); White Blood Count 11.7 K/mm3 (4.8-10.8)
[2023-12-15 07:10] LABS: Albumin Level 3.9 g/dl (3.5-5.0); Chloride 100 mmol/L (98-107); Potassium 3.6 mmoL/L (3.5-5.1); Sodium 133 mmol/L (136-145)
[2023-12-15 07:11] LABS: MANUAL DIFFERENTIAL MANUAL DIFFERENTIAL (MANUAL DIFF)
[2023-12-15 07:12] LABS: Blood Urea Nitrogen 8 mg/dl (9-20); Creatinine Clearance Estimated 93 mL/min (50-200); Estimated Glomerular Filt Rate 74 ml/min (>60); GFR (African American) 90 ML/MIN (>60)
[2023-12-15 07:13] LABS: Alanine Aminotransferase 31 U/L (12-78); Albumin/Globulin Ratio 1.5 (1.1-1.8); Alkaline Phosphatase 36 U/L (38-126); Aspartate Amino Transferase 32 U/L (17-59); Calcium 8.8 mg/dl (8.4-10.2); Globulin 2.6 g/dL (1.3-3.2); Glucose 278 mg/dl (74-100); Total Protein,Serum 6.5 g/dl (6.3-8.2)
[2023-12-15 07:27] VITALS: BP 146/96; PULSE 114; RESP 18; TEMP 36.7; O2SAT 96
[2023-12-15] MEDS: IBUPROFEN 600 MG TABLET PO (07:35)
[2023-12-15 07:40] VITALS: PULSE 113
[2023-12-15 09:05] LABS: POC Glucose,Bedside 293 (70-110)
[2023-12-15 09:28] LABS: Lymphocytes % 10 % (10-50); Monocytes % 2 % (2-9); Neutrophils % 88 % (42-76); Platelet Estimate Normal; RBC Morphology Normal; Total Cells Counted 100
--- NOTE | 2023-12-15 09:45 | P.PN_ITS ---
Subjective Patient reports: no new complaints and feels better Exam Data for Last 24 hours Vital signs and Labs for Last 24 Hours: Temp Pulse Resp BP Pulse Ox O2 Del Method 98.1 F 113 H 18 146/96 H 96 Room Air 12/15/23 07:27 12/15/23 07:40 12/15/23 07:27 12/15/23 07:27 12/15/23 07:27 12/15/23 07:40 Laboratory Results - last 24 hr 12/14/23 11:52: POC Glucose 257 H 12/14/23 16:26: POC Glucose 236 H 12/14/23 20:55: POC Glucose 212 H 12/15/23 05:47: POC Glucose 293 H 12/15/23 06:42: WBC 11.7 H, RBC 4.53 L, Hgb 14.1, Hct 41.8 L, MCV 92.4, MCH 31.3 H, MCHC 33.8, RDW 14.0, Plt Count 220, MPV 6.7 L, Neut % (Auto) 85.6 H, Lymph % (Auto) 5.4 L, [place] % (Auto) 6.9, Eos % (Auto) 1.9, Baso % (Auto) 0.2, Neut # (Auto) 10.1 H, Lymph # (Auto) 0.6 L, [place] # (Auto) 0.8, Eos # (Auto) 0.2, Baso # (Auto) 0.0, Total Counted 100, Neutrophils % (Manual) 88 H, Lymphocytes % (Manual) 10, Monocytes % (Manual) 2, Platelet Estimate Normal, RBC Morphology Normal, Sodium 133 L, Potassium 3.6, Chloride 100, Carbon Dioxide 24, BUN 8 L D, Creatinine 1.00 D, Estimated Creat Clear 93, Estimated GFR 74, Est GFR ( Amer) 90 D, Glucose 278 H, Calcium 8.8, Total Bilirubin 1.0, AST 32 D, ALT 31, Alkaline Phosphatase 36 L, Total Protein 6.5, Albumin 3.9 D, Globulin 2.6, Albumin/Globulin Ratio 1.5 I & O for Last 24 hours: Intake & Output 12/12/23 12/13/23 12/14/23 12/15/23 11:59 11:59 11:59 11:59 Intake Total 360 / 360 Output Total 550 / 550 0 / 0 Balance -550 / -550 360 / 360 Weight 207 lb 4.8 oz 207 lb 4.81 oz Constitutional Constitutional: no acute distress *Routine Respiratory Exam Respiratory: Absent respiratory distress *Routine Abdominal Exam Abdominal: Present soft Comments: Less tenderness to palpation Progress Note: A&P Assessment and plan (1) Cholecystitis: Status: Acute Assessment and plan: I had additional discussion with the patient regarding cholecystectomy. He wishes to hold off until postoperative follow-up with his urologist. Okay from surgical standpoint for discharge home with close outpatient follow-up (either at this facility or in [place]). He will likely require cholecystectomy in the very near future. (2) Enteritis: Status: Acute
[2023-12-15] MEDS: ENOXAPARIN 40MG/0.4ML SYRINGE 40 MG SUBCUT (10:01)
[2023-12-15 10:20] LABS: HCV Ab Non Reactive (Non Reactive)
[2023-12-15 10:24] LABS: Anion Gap 12.6 mEq/L (5-15); Carbon Dioxide 24 mmol/L (22.0-30.0)
[2023-12-15 11:56] LABS: POC Glucose,Bedside 314 (70-110)
--- NOTE | 2023-12-15 12:56 | EXP.DC.SUM ---
General Admission date:: 12/14/23 Discharge date: 12/15/23 HPI HPI HPI: This is a 68-year-old gentleman seen in consultation from primary service for evaluation regarding possible gallbladder disease. She HPI forwarded from admission H&P below. Currently, the patient feels much better . He states that he is still recovering from transurethral bladder cancer resection last week ([place], [place]) and wishes to hold off on more surgery if possible . He also states that he feels somewhat more comfortable undergoing surgery if needed after being seen again by the urologist if possible . Forwarded from admission H&P: Patient is a 68-year-old male with past medical history of diabetes mellitus, bladder cancer who presented to hospital for sudden onset abdominal pain and vomiting. Patient mentions his abdominal pain is generalized intermittent, sharp in nature 8/10 intensity, nonradiating. Patient mentions he has associated vomiting, nonbloody, he feels nauseated intermittently. He denied associated fevers chills. He had abdominal pelvis CTA performed in the emergency department. Did show dilated small bowel loops concerning for enteritis. Hospital Course Hospital Course Hospital Course: Patient is a 68-year-old male with past medical history of diabetes mellitus, bladder cancer who presented to hospital for sudden onset abdominal pain and vomiting. Patient mentions his abdominal pain is generalized intermittent, sharp in nature 8/10 intensity, nonradiating. Patient mentions he has associated vomiting, nonbloody, he feels nauseated intermittently. He denied associated fevers chills. He had abdominal pelvis CTA performed in the emergency department. Did show dilated small bowel loops concerning for enteritis. Right upper quadrant ultrasound obtained this morning. Concern for cholecystitis with sludge, stones, pericholecystic fluid per my review. Evaluated by surgery. Able to advance diet. Given tolerance of diet and improvement in symptoms, will have close follow-up with surgery to discuss outpatient cholecystectomy. Stable to discharge home. Problems addressed as follows: Cholecystitis Abdominal pain suspect due to enteritis Fat reticulation around common bile duct on CT abdomen pelvis Post surgical changes urinary bladder on CT abdomen pelvis -Surgery consulted. Ultrasound obtained showing cholelithiasis with some thickening of gallbladder wall and pericholecystic fluid. No ductal dilatation. Liver function labs with bilirubin, AST, ALT all normal on morning of discharge. Given patient's tolerance of diet advancement, improvement on exam, discussed case extensively with surgery. Will plan to have patient follow-up on Wednesday for evaluation for surgery as an outpatient. Patient did have surgery just last week on his bladder for bladder wall cancer. Needs follow-up with urology for further evaluation. Pain improved with treatment, no opiates on day of discharge. No Zofran needed for 24 hours. Clinically improving. Initially treated with ceftriaxone empirically. White count normalizing. Low concern for infection. Suspect secondary to reactive state and D marginalization from nausea and vomiting. No antibiotics at discharge. Hyperglycemia in the setting of diabetes mellitus: Treated with sliding scale during admission. Recommend holding Ozempic at discharge. Okay to resume remainder of diabetes regimen. Needs follow-up as an outpatient for further adjustment of diabetic regimen. Total time spent on discharge 36 minutes in counseling, documentation, chart review, and direct care with patient. Exam Data for Last 24 hours Vital signs and Labs for Last 24 Hours: Temp Pulse Resp BP Pulse Ox O2 Del Method 98.1 F 113 H 18 146/96 H 96 Room Air 12/15/23 07:27 12/15/23 07:40 12/15/23 07:27 12/15/23 07:27 12/15/23 07:27 12/15/23 11:00 Laboratory Results - last 24 hr 12/14/23 00:30: Hepatitis C Antibody Non reactive 12/14/23 16:26: POC Glucose 236 H 12/14/23 20:55: POC Glucose 212 H 12/15/23 05:47: POC Glucose 293 H 12/15/23 06:42: WBC 11.7 H, RBC 4.53 L, Hgb 14.1, Hct 41.8 L, MCV 92.4, MCH 31.3 H, MCHC 33.8, RDW 14.0, Plt Count 220, MPV 6.7 L, Neut % (Auto) 85.6 H, Lymph % (Auto) 5.4 L, [place] % (Auto) 6.9, Eos % (Auto) 1.9, Baso % (Auto) 0.2, Neut # (Auto) 10.1 H, Lymph # (Auto) 0.6 L, [place] # (Auto) 0.8, Eos # (Auto) 0.2, Baso # (Auto) 0.0, Total Counted 100, Neutrophils % (Manual) 88 H, Lymphocytes % (Manual) 10, Monocytes % (Manual) 2, Platelet Estimate Normal, RBC Morphology Normal, Sodium 133 L, Potassium 3.6, Chloride 100, Carbon Dioxide 24, Anion Gap 12.6, BUN 8 L D, Creatinine 1.00 D, Estimated Creat Clear 93, Estimated GFR 74, Est GFR ( Amer) 90 D, Glucose 278 H, Calcium 8.8, Total Bilirubin 1.0, AST 32 D, ALT 31, Alkaline Phosphatase 36 L, Total Protein 6.5, Albumin 3.9 D, Globulin 2.6, Albumin/Globulin Ratio 1.5 12/15/23 10:38: POC Glucose 314 H* I & O for Last 24 hours: Intake & Output 12/12/23 12/13/23 12/14/23 12/15/23 23:59 23:59 23:59 23:59 Intake Total 120 / 120 240 / 240 Output Total 550 / 550 0 / 0 Balance -430 / -430 240 / 240 Weight 94.03 kg 94.03 kg Constitutional Constitutional: no acute distress, average body habitus and cooperative *Routine HEENT Exam Head: Present normocephalic Eye: Present EOMI and PERRL ENT: Present mucous membranes moist *Routine Neck Exam Neck: Present supple; Absent lymphadenopathy *Routine Respiratory Exam Respiratory: Present CTA bilaterally; Absent rhonchi, wheezes or crackles *Routine Cardiovascular Exam Cardiovascular: Present RRR *Routine Abdominal Exam Abdominal: Present soft and normoactive bowel sounds; Absent tenderness *Routine Rectal Exam Patient deferred: visual exam *Routine Exam Patient deferred: penile exam *Routine Extremities Exam Extremities: Absent cyanosis, clubbing or edema *Routine Skin Exam Skin: Present warm; Absent rash *Routine Neurological Exam Neurological: Present alert, oriented X3 and moving all extremities; Absent altered mental status Results Data Completed and Pending Labs on day of discharge: Labs from last 24 hours 12/15/23 12/15/23 12/15/23 10:38 06:42 05:47 WBC 11.7 H RBC 4.53 L Hgb 14.1 Hct 41.8 L MCV 92.4 MCH 31.3 H MCHC 33.8 RDW 14.0 Plt Count 220 MPV 6.7 L Neut % (Auto) 85.6 H Lymph % (Auto) 5.4 L [place] % (Auto) 6.9 Eos % (Auto) 1.9 Baso % (Auto) 0.2 Neut # (Auto) 10.1 H Lymph # (Auto) 0.6 L [place] # (Auto) 0.8 Eos # (Auto) 0.2 Baso # (Auto) 0.0 Total Counted 100 Neutrophils % (Manual) 88 H Lymphocytes % (Manual) 10 Monocytes % (Manual) 2 Platelet Estimate Normal RBC Morphology Normal Sodium 133 L Potassium 3.6 Chloride 100 Carbon Dioxide 24 Anion Gap 12.6 BUN 8 L D Creatinine 1.00 D Estimated Creat Clear 93 Estimated GFR 74 Est GFR ( Amer) 90 D Glucose 278 H POC Glucose 314 H* 293 H Calcium 8.8 Total Bilirubin 1.0 AST 32 D ALT 31 Alkaline Phosphatase 36 L Total Protein 6.5 Albumin 3.9 D Globulin 2.6 Albumin/Globulin Ratio 1.5 Hepatitis C Antibody 12/14/23 12/14/23 12/14/23 20:55 16:26 00:30 WBC RBC Hgb Hct MCV MCH MCHC RDW Plt Count MPV Neut % (Auto) Lymph % (Auto) [place] % (Auto) Eos % (Auto) Baso % (Auto) Neut # (Auto) Lymph # (Auto) [place] # (Auto) Eos # (Auto) Baso # (Auto) Total Counted Neutrophils % (Manual) Lymphocytes % (Manual) Monocytes % (Manual) Platelet Estimate RBC Morphology Sodium Potassium Chloride Carbon Dioxide Anion Gap BUN Creatinine Estimated Creat Clear Estimated GFR Est GFR ( Amer) Glucose POC Glucose 212 H 236 H Calcium Total Bilirubin AST ALT Alkaline Phosphatase Total Protein Albumin Globulin Albumin/Globulin Ratio Hepatitis C Antibody Non reactive DS: Diagnosis Discharge Diagnosis (1) Cholecystitis: Status: Acute Code(s): K81.9 - Cholecystitis, unspecified (2) Enteritis: Status: Acute Code(s): K52.9 - Noninfective gastroenteritis and colitis, unspecified Meds Home Medications and Allergies Home Medications ?Medication ?Instructions ?Recorded ?Confirmed ?Type ascorbic acid (vitamin C) 1,000 mg 1 g PO BID 08/08/23 12/14/23 History tablet (Vitamin C) aspirin 81 mg chewable tablet 81 mg PO DAILY 08/08/23 12/14/23 History carvedilol 12.5 mg tablet 12.5 mg PO BID 08/08/23 12/14/23 History fenofibrate 150 mg capsule 150 mg PO DAILY 08/08/23 12/14/23 History ferrous sulfate 325 mg (65 mg 325 mg PO BID 08/08/23 12/14/23 History iron) tablet glipizide 10 mg tablet 10 mg PO BID 08/08/23 12/14/23 History lisinopril 2.5 mg tablet 2.5 mg PO DAILY 08/08/23 12/14/23 History metformin 1,000 mg tablet 1,000 mg PO BID 08/08/23 12/14/23 History htsqmqyeknpy-pcautguf-twitfq tablet 1 tab PO DAILY 08/08/23 12/14/23 History semaglutide 1 mg/dose (4 mg/3 mL) 2 mg SQ WEEKLY 08/08/23 12/14/23 History subcutaneous pen injector (Ozempic) vitamin E 1,000 unit tablet 1 tab PO DAILY 08/08/23 12/14/23 History atorvastatin 40 mg tablet 40 mg PO DAILY 12/14/23 12/14/23 History New Prescriptions to Start Prescriptions: Allergies Allergy/AdvReac Type Severity Reaction Status Date / Time niacin Allergy Rash Verified 12/14/23 05:01 phenazopyridine Allergy Rash Verified 12/14/23 05:01 [From Pyridium] Discharge Plan Disposition Patient Disposition: Home, Self-Care Condition: Fair Follow up Plan Follow up with: Trae Leon MD [Other] - 12/16/23 9:15 am Lamonte Almaguer MD [Staff Physician] - 12/17/23 9:45 am Lamonte Espinosa [Referring] - Enter time for follow up Prescriptions/Medication Reconciliation: Continued atorvastatin 40 mg tablet 40 mg PO DAILY Patient Comments: TAKE 1 TABLET BY MOUTH ONCE DAILY metformin 1,000 mg Tablet 1,000 mg PO BID ascorbic acid (vitamin C) [Vitamin C] 1,000 mg Tablet 1 g PO BID carvedilol 12.5 mg Tablet 12.5 mg PO BID Rx Instructions: must administer with a meal/food glipizide 10 mg Tablet 10 mg PO BID ferrous sulfate 325 mg (65 mg iron) Tablet 325 mg PO BID lisinopril 2.5 mg Tablet 2.5 mg PO DAILY vitamin E 1,000 unit Tablet 1 tab PO DAILY cohksorgldsl-cyigcdug-lcsspr Tablet 1 tab PO DAILY fenofibrate 150 mg Capsule 150 mg PO DAILY Held aspirin 81 mg Tablet,Chewable 81 mg PO DAILY Hold Instructions: Pending evaluation by surgery on Wednesday Ozempic 1 mg/dose (4 mg/3 mL) Pen Injector 2 mg SQ WEEKLY Hold Instructions: Pending evaluation by surgery on Wednesday Problem Reconciliation Problems Reviewed?: Yes Patient Discharge Instructions ACTIVITY: Continue current activity DIET: continue same diet Patient Instructions: DI for Abdominal Pain-Adult, DI for Enteritis Print Language: Sami Providers Primary Care Provider: Provider,Referral Admit Provider: Xuan Murdock Attending Provider: Xuan Murdock
--- NOTE | 2023-12-16 13:41 | CARE MANAGER ---
Contacted patient related to hospital discharge. He states he followed up with Dr. Leon today. He is supposed to follow up with Dr. Almaguer tomorrow, but is going to cancel as he is afraid he will want to do surgery and he feels like he needs to have a bowel movement prior to surgery. It has been a week. We discussed stool softeners and notifying PCP. Denies any other questions or concerns. JUANCARLOS Rios
== END 2023-12-15 13:43 | disposition home or self-care (01) ==
LOC: ER 04:15 → 2ND 04:46
PROVIDERS: Internal Medicine Adolescent Medicine; Admitting Provider Internal Medicine; Emergency Provider Emergency Medicine; Visit Provider Internal Medicine
DX: K52.9 Noninfective gastroenteritis and colitis, unspecified (principal); K83.9 Disease of biliary tract, unspecified; R10.9 Unspecified abdominal pain; K81.9 Cholecystitis, unspecified; E11.65 Type 2 diabetes mellitus with hyperglycemia; Z79.85 Long-term (current) use of injectable non-insulin antidiabetic drugs; Z79.84 Long term (current) use of oral hypoglycemic drugs; Z79.899 Other long term (current) drug therapy; C67.9 Malignant neoplasm of bladder, unspecified
CPT/HCPCS: 36415; 71275; 74174; 76705; 80048; 80053; 81001; 82962; 83690; 84484; 85007; 85025; 86803; 87389; 99285; G0378; J0696; J1650; J2270; J2405; J7030; Q9967

== ENCOUNTER 2023-12-17 10:42 | Outpatient (CLI) | payer MEDICARE, SELFPAY ==
[2023-12-17 11:21] LABS: Basophils % 0.4 % (0.1-2.0); Eosinophils # 0.3 K/mm3 (0.0-0.4); Eosinophils % 3.9 % (0.1-12.0); Hematocrit 41.7 % (42.0-52.0); Hemoglobin 14.3 g/dL (14.1-18.0); Lymphocytes # 1.2 K/mm3 (0.7-4.5); Lymphocytes % 14.9 % (10-50); Mean Corpuscular HGB Conc 34.3 g/dL (31.8-35.4); Mean Corpuscular Volume 90.6 fl (80-94); Mean Platelet Volume 7.1 fl (7.4-10.4); Monocytes # 0.8 K/mm3 (0.1-1.0); Monocytes % 10.1 % (1.7-9.3); Neutrophils # 5.5 K/mm3 (1.8-7.8); Neutrophils % 70.7 % (37.0-80.0); Platelet Count 331 K/mm3 (142-424); Red Blood Count 4.61 M/mm3 (4.60-6.20); Red Cell Distribution Width 13.7 % (11.5-17.5); White Blood Count 7.8 K/mm3 (4.8-10.8)
[2023-12-17 11:56] LABS: Albumin Level 3.8 g/dl (3.5-5.0); Chloride 102 mmol/L (98-107); Potassium 4.1 mmoL/L (3.5-5.1); Sodium 136 mmol/L (136-145)
[2023-12-17 11:59] LABS: Alanine Aminotransferase 48 U/L (12-78); Albumin/Globulin Ratio 1.5 (1.1-1.8); Alkaline Phosphatase 72 U/L (38-126); Anion Gap 12.1 mEq/L (5-15); Aspartate Amino Transferase 49 U/L (17-59); Bilirubin,Total 0.7 mg/dl (0.2-1.3); Blood Urea Nitrogen 24 mg/dl (9-20); Calcium 9.2 mg/dl (8.4-10.2); Carbon Dioxide 26 mmol/L (22.0-30.0); Estimated Glomerular Filt Rate 55 ml/min (>60); GFR (African American) 66 ML/MIN (>60); Globulin 2.5 g/dL (1.3-3.2); Glucose 237 mg/dl (74-100); Total Protein,Serum 6.3 g/dl (6.3-8.2)
== END 2023-12-17 23:59 | disposition home or self-care (01) ==
LOC: LAB 10:43
PROVIDERS: PCP Family Medicine; Visit Provider Surgery
DX: K81.9 Cholecystitis, unspecified (principal)
CPT/HCPCS: 36415; 80053; 85025

== ENCOUNTER 2023-12-20 11:10 | Day surgery (SDC) | payer MEDICARE, SELFPAY ==
[2023-12-20] VITALS (8 sets, daily range): BP systolic 123–157; BP diastolic 76–89; PULSE 78–101; RESP 14–18; TEMP 36.3–36.6; O2SAT 93–98; BMI 29.4
[2023-12-20] MEDS: LACTATED RINGERS 1000ML 1,000 ML 25 ML IV (11:35)
--- NOTE | 2023-12-20 12:48 | EXP.ANES.CKL ---
[facility] Disclaimer: The information contained in this section may have been updated after the patient was seen, as this information can be updated by other users. Medical History Jugular vein stenosis Bladder cancer Hyperlipidemia Hypertension Diabetes mellitus Surgical History Stented coronary artery Family History (Updated 12/20/23 @ 11:30 by Shauna Wilkes RN) Other Family history of cancer Family history of diabetes mellitus type II Social History (Updated 12/20/23 @ 11:31 by Shauna Wilkes RN) Smoking Status: Never smoker alcohol intake: never substance use type: denies use current occupational status: retired Travel in the last 8 weeks: None [facility] Anesthesia Checklist Patient Identification Patient Identification: Arm Band Structural Data Admitted From: Home Planned Operative Procedure/s: Laparoscopic Cholecystectomy Consent for Planned Operative Procedure(s) Verified: Yes Verified Documents: Surgical Consent and History and Physical NPO Status Verified Time NPO: 00:00 Additional verifications Anesthesia Reactions: No Hx Blood Transfusions: No Blood Transfusion Reaction: No Airway Assessment Mallampati Score:: Class III C-Spine Mobility Assessed: Yes TMJ Mobility Assessed: Yes Dentition: Edentulous Neurological Assessment Level of Consciousness: Awake, Alert and Appropriate Anesthesia Plan Anesthesia Risk discussed: Yes Anesthesia Plan: Verified ASA Class: III Anesthesia Type: General
[2023-12-20] MEDS: CEFAZOLIN SODIUM 2 GM in 0.9 % SODIUM CHLORIDE 100 ML IV (14:10)
[2023-12-20] MEDS: SODIUM CHLORIDE IRRIG SOLUTION 3,000 ML 100 ML IR (14:17)
[2023-12-20] MEDS: LIDOCAINE 1% 20ML MDV 20 ML (14:17)
--- NOTE | 2023-12-20 15:07 | EXP.OP.NOTE ---
Date of procedure: 12/20/23 Pre-op Diagnosis:: Acute calculus cholecystitis Post-op Diagnosis:: Same Procedure performed:: Laparoscopic cholecystectomy Surgeon:: Lamonte Almaguer MD BRICK EXTRUDER OPERATOR:: Phi Mendoza Anesthesia: GETSesar Estimated blood loss (mL): 15 Operative findings:: Fairly severe gallbladder wall thickening Patchy necrosis of gallbladder wall Severe pericholecystic fat stranding with adhesions to omentum, colon, and small bowel Operative note:: After informed consent was obtained, the patient was taken to the operating room and placed in the supine position. General anesthesia was induced and the abdomen was prepped and draped in a sterile fashion. After infiltration with local anesthetic an supraumbilical incision was made. A Veress needle was placed in position. The abdomen was insufflated. A 5 mm optical trocar was placed in position. Under direct visualization, a 12 mm trocar was placed in the subxiphoid position and 2 additional 5 mm trocars were placed in the right upper quadrant. The gallbladder was elevated up and over the liver margin. The tissue around the cystic duct was carefully dissected. 3 clips were placed proximally and the duct was transected with harmonic sudhakar. Harmonic sudhakar were then utilized to dissect the gallbladder away from the liver margin with careful attention to the control of the cystic artery. The gallbladder was placed in a retrieval bag and removed through the subxiphoid trocar site. The right upper quadrant was thoroughly irrigated. No active bleeding or bile leak was noted. Fascia at the subxiphoid trocar site was reapproximated utilizing 0 Ethibond. The remaining trocars were removed. All wounds were irrigated and skin was closed with 4-0 Monocryl in a subcuticular fashion. Steri-Strips were applied. The patient's anesthetic agents were reversed and extubation was completed prior to transfer to recovery in stable condition. Condition: stable Disposition: PACU Specimens:: Gallbladder Complications:: No immediate
[2023-12-20 15:27] LABS: POC Glucose,Bedside 176 (70-110)
[2023-12-20] MEDS: ONDANSETRON 4MG/2ML VIAL 4 MG IV (16:50)
[2023-12-21 06:20] LABS: POC Glucose,Bedside 266 (70-110)
--- NOTE | 2023-12-21 14:44 | P.PNANES_ITS ---
[facility] Anesthesia Record Part II Anesthesia Record Part II Discharge Time: 15:45 Destination: Surgical Day Care (OP Surgery) PACU nurse assessment reviewed?: Yes Patient Condition:: Good Anesthesia Complications:: None Swallowing reflex intact?: Yes Airway Patency: Patent Cyanosis?: No Blood Pressure: 140/76 SaO2: 95 Respiratory Rate: 14 Pulse Rate: 91 Temperature: 97.5 F Mental Status: Alert & Oriented Pain level:: 0 Nausea and/or vomitting:: None Intake, IV Amount: 0 Hydration: Adequate
[2023-12-21 14:45] VITALS: BP 140/76; PULSE 91; RESP 14; TEMP 36.4; O2SAT 95
== END 2023-12-20 17:12 | disposition home or self-care (01) ==
PROVIDERS: Visit Provider Surgery
PROC: 0FT44ZZ Resection of Gallbladder, Percutaneous Endoscopic Approach (ICD-10-PCS; CPT 47562; principal; 2023-12-20 12:30)
DX: K80.00 Calculus of gallbladder with acute cholecystitis without obstruction (principal); E11.8 Type 2 diabetes mellitus with unspecified complications; Z79.84 Long term (current) use of oral hypoglycemic drugs
CPT/HCPCS: 47562; 82962; 88304; 96374; J3490; J0690; J1100; J2250; J2405; J3010; J7120

== ENCOUNTER 2024-02-29 12:15 | Emergency (ER) | payer MEDICARE, SELFPAY ==
[2024-02-29] VITALS (9 sets, daily range): BP systolic 113–142; BP diastolic 64–82; PULSE 85–91; RESP 16–18; TEMP 36.6; O2SAT 93–99; BMI 28.5
--- NOTE | 2024-02-29 13:15 | ED_ITS ---
Discharge Plan Disposition Patient Disposition: Home, Self-Care Condition: Good Prescriptions Prescriptions: New clotrimazole-betamethasone 1-0.05 % cream 1 applic topical BID Qty: 15 0RF Rx Instructions: Use topically twice daily around the affected area for 2 weeks or until urology follow-up No Action atorvastatin 40 mg tablet 40 mg PO DAILY Patient Comments: TAKE 1 TABLET BY MOUTH ONCE DAILY aspirin 81 mg Tablet,Chewable 81 mg PO DAILY metformin 1,000 mg Tablet 1,000 mg PO BID ascorbic acid (vitamin C) [Vitamin C] 1,000 mg Tablet 1 g PO BID carvedilol 12.5 mg Tablet 12.5 mg PO BID Rx Instructions: must administer with a meal/food glipizide 10 mg Tablet 10 mg PO BID ferrous sulfate 325 mg (65 mg iron) Tablet 325 mg PO BID lisinopril 2.5 mg Tablet 2.5 mg PO DAILY vitamin E 1,000 unit Tablet 1 tab PO DAILY ylqfowtcrhdg-ndftgbfj-nyqdim Tablet 1 tab PO DAILY fenofibrate [Lipofen] 150 mg Capsule 150 mg PO DAILY Ozempic 1 mg/dose (4 mg/3 mL) Pen Injector 2 mg SQ WEEKLY Referrals Follow up/Referrals: Provider,Referral, MD [Primary Care Provider] - See instructions Activity Restrictions/Add. Instructions Additional Instructions/Restrictions: Please follow-up with urology return to the emergency department any worsening signs or symptoms. His urinary retention pain with urination, take medication/topical cream as prescribed. Follow-up with urology. Clinical Impressions Clinical Impression: Phimosis Instructions Patient Instructions: DI for Phimosis Print Language Print Language: Polish Discharge ED Provider: Ernie De Dios General Adult HPI <SAUNDRA Stone - Last Filed: 02/29/24 16:00> General Chief complaint: Skin/Abscess/Foreign Body Stated complaint: cant urinate Time Seen by Provider: 02/29/24 13:13 Mode of Arrival: Ambulatory Source of Information: Patient Limitations: No Limitations Description of Symptoms (Recalled from ER Triage Doc. by RN): PT REPORTS 2-3 WEEKS OF SWELLING OF HEAD OF PENIS, WORSENING OVER 2-3 DAYS. NO SWELLING OF PERINEUM. ABLE TO VOID. PT IS DIABETIC History of Present Illness HPI narrative: 68-year-old male presents to the emergency department with 2 weeks of penile/urethral swelling and pain, as well as some decreased urinary frequency, however patient is still urinating, he denies any dysuria hematuria, denies any testicular pain or swelling, denies any fever chills chest pain shortness of breath cough congestion abdominal pain nausea vomiting constipation diarrhea, denies any sexual contacts, no risky sexual behaviors, no urethral discharge. Does have past medical history consistent with hyperlipidemia, hypertension, type 2 diabetes, bladder cancer that is postsurgical intervention in December 2023. He is a non-smoker denies any alcohol or drug use, there is vitals are unremarkable, patient is uncircumcised. Of note, patient does tell me that he was recently on Farxiga 2 weeks ago noticed this 22 weeks ago, however has been off Farxiga and switched to Ozempic for 1 week. Related Data Home Medications ?Medication ?Instructions ?Recorded ?Confirmed ascorbic acid (vitamin C) 1,000 mg 1 g PO BID 08/08/23 01/05/24 tablet (Vitamin C) aspirin 81 mg chewable tablet 81 mg PO DAILY 08/08/23 01/05/24 carvedilol 12.5 mg tablet 12.5 mg PO BID 08/08/23 01/05/24 fenofibrate 150 mg capsule 150 mg PO DAILY 08/08/23 01/05/24 (Lipofen) ferrous sulfate 325 mg (65 mg 325 mg PO BID 08/08/23 01/05/24 iron) tablet glipizide 10 mg tablet 10 mg PO BID 08/08/23 01/05/24 lisinopril 2.5 mg tablet 2.5 mg PO DAILY 08/08/23 01/05/24 metformin 1,000 mg tablet 1,000 mg PO BID 08/08/23 01/05/24 wgjhhlaecldm-ihbxcraw-tnwvhg tablet 1 tab PO DAILY 08/08/23 01/05/24 semaglutide 1 mg/dose (4 mg/3 mL) 2 mg SQ WEEKLY 08/08/23 01/05/24 subcutaneous pen injector (Ozempic) vitamin E 1,000 unit tablet 1 tab PO DAILY 08/08/23 01/05/24 atorvastatin 40 mg tablet 40 mg PO DAILY 12/14/23 01/05/24 Previous Rx's ?Medication ?Instructions ?Recorded clotrimazole-betamethasone 1 1 applic topical BID #15 grams 02/28/ %-0.05 % topical cream Allergies Allergy/AdvReac Type Severity Reaction Status Date / Time niacin Allergy Rash Verified 01/05/24 13:46 phenazopyridine (From Allergy Rash Verified 01/05/24 13:46 Pyridium) [facility] <SAUNDRA Stone - Last Filed: 02/29/24 16:00> [facility] Disclaimer: The information contained in this section may have been updated after the patient was seen, as this information can be updated by other users. Medical History (Updated 02/29/24 @ 15:59 by SAUNDRA Stone) Jugular vein stenosis Bladder cancer Hyperlipidemia Hypertension Diabetes mellitus Surgical History Hx laparoscopic cholecystectomy Stented coronary artery Family History Other Family history of cancer Family history of diabetes mellitus type II Social History Smoking Status: Former smoker alcohol intake: never substance use type: denies use current occupational status: retired Travel in the last 8 weeks: None Have you lived/traveled outside [place] in past 30 days?: No Contact w/someone who lives/traveled outside [place] past 30 days?: No Exposure to someone with infectious disease in past 14 days?: No Do you have a fever (greater than 100.4 F or 38 C)?: No Have you tested positive for COVID-19: No Exposed to someone with COVID-19 in past 14 days?: No Do you have a sore throat?: No Do you have a cough?: No Do you have any weakness?: No Do you have any diarrhea?: No Are you experiencing any unusual bleeding?: No Do you have any muscle aches/pain?: No Do you have any abdominal pain?: No Are you experiencing loss of taste or smell?: No Other Medical History Have you received the Flu Vaccine for this season: No Have you received the Pneumonia Vaccine: No <SAUNDRA Stone - Last Filed: 02/29/24 16:00> ROS Obtained: Yes All systems reviewed & no additional complaints except as documented Physical Exam <SAUNDRA Stone - Last Filed: 02/29/24 16:00> General General appearance: alert and in no apparent distress Head Head exam: atraumatic and normocephalic Eye Eye exam: Present PERRL and EOMI ENT ENT exam: Present mucous membranes moist Neck Neck exam: Present normal inspection Chest Chest inspection: Present normal inspection and symmetric chest wall rise Respiratory Respiratory exam: Present normal lung sounds bilaterally; Absent respiratory distress Cardiovascular Cardiovascular exam: Present regular rate and normal rhythm Abdominal Exam Abdominal exam: Present soft; Absent tenderness, guarding, rebound or rigidity exam: Present normal testicular lie and other (There are some erythema around the patient's urethra, no urethral discharge, patient is uncircumcised, foreskin is unable to be retracted at the bedside); Absent testicular tenderness, urethral discharge or scrotal swelling Extremities Exam Extremities exam: Present normal inspection Neurological Exam Neurological exam: Present alert and oriented X3 Psychiatric Psychiatric exam: Present normal affect Skin Skin exam: Present warm and dry Medical Decision Making <SAUNDRA Stone - Last Filed: 02/29/24 16:00> Medical Records Medical records reviewed: Yes I reviewed the patient's medical records. Screening: Per USPSTF and CDC recommendations, given the prevalence of disease in our region, it is our hospital?s policy to screen for HIV and viral Hepatitis for all patients aged 18 and over and those with ongoing risk factors. Hugo Inquiry Pt receiving controlled substance: No Hugo was queried for this patient: No Vital Signs: 02/29/24 12:17 02/29/24 13:46 02/29/24 14:00 Temperature 97.8 F Temperature Source Oral Pulse Rate 87 85 Pulse Rate [Radial] 87 Respiratory Rate 18 18 Blood Pressure 118/65 113/76 Blood Pressure [Right Arm] 125/78 Blood Pressure Mean 82 85 Blood Pressure Mean [Right Arm] 93 Blood Pressure Source Blood Pressure Source [Right Arm] Automatic Cuff Blood Pressure Position Blood Pressure Position [Right Arm] Sitting 02 Sat by Pulse Oximetry 99 96 95 Oxygen Delivery Method Room Air Room Air 02/29/24 14:15 02/29/24 14:30 02/29/24 14:45 Temperature Temperature Source Pulse Rate 91 H 91 H 89 Pulse Rate [Radial] Respiratory Rate 16 18 18 Blood Pressure 132/78 123/70 132/80 Blood Pressure [Right Arm] Blood Pressure Mean 92 82 89 Blood Pressure Mean [Right Arm] Blood Pressure Source Blood Pressure Source [Right Arm] Blood Pressure Position Blood Pressure Position [Right Arm] 02 Sat by Pulse Oximetry 93 L 93 L 95 Oxygen Delivery Method 02/29/24 15:22 02/29/24 15:31 02/29/24 16:00 Temperature 97.9 F Temperature Source Oral Pulse Rate 89 90 88 Pulse Rate [Radial] Respiratory Rate 18 Blood Pressure 142/64 H 124/71 127/82 Blood Pressure [Right Arm] Blood Pressure Mean Blood Pressure Mean [Right Arm] Blood Pressure Source Automatic Cuff Blood Pressure Source [Right Arm] Blood Pressure Position Sitting Blood Pressure Position [Right Arm] 02 Sat by Pulse Oximetry 95 95 Oxygen Delivery Method Room Air Room Air Room Air Lab Data Lab results reviewed: Yes I reviewed the patient's lab results. Lab Results 02/29/24 12:52: Urine Color Yellow, Urine Appearance Clear, Urine pH 5.5, Ur Specific [place] >= 1.030, Urine Protein Negative, Urine Glucose (UA) 2+, Urine Ketones Negative, Urine Blood Negative, Urine Nitrate Negative, Urine Bilirubin Negative, Urine Urobilinogen 0.2, Ur Leukocyte Esterase Negative, Urine RBC Occasional, Urine WBC Occasional, Ur Squamous Epith Cells 3-5, Urine Bacteria Trace 02/29/24 15:03: WBC 4.9, RBC 4.28 L, Hgb 13.1 L, Hct 38.2 L, MCV 89.3, MCH 30.6, MCHC 34.3, RDW 13.5, Plt Count 205, MPV 8.7, Neut % (Auto) 58.5, Lymph % (Auto) 24.5, Dyer % (Auto) 13.5 H, Eos % (Auto) 2.7, Baso % (Auto) 0.6, Neut # (Auto) 2.9, Lymph # (Auto) 1.2, [place]yer # (Auto) 0.7, Eos # (Auto) 0.1, Baso # (Auto) 0.0, Sodium 136, Potassium 4.0, Chloride 104, Carbon Dioxide 24, Anion Gap 12.0, BUN 21 H, Creatinine 1.00, Estimated Creat Clear 92, Estimated GFR 74, Est GFR ( Amer) 90, Glucose 279 H, Calcium 9.1, Total Bilirubin 0.6, AST 36, ALT 34, Alkaline Phosphatase 37 L, Total Protein 6.1 L, Albumin 3.9, Globulin 2.2, Albumin/Globulin Ratio 1.8 02/29/24 15:03 02/29/24 15:03 Orders (Tests/Meds): ORDERS Category Date Time Status Complete Blood Count Auto Diff Stat Lab 02/29/24 15:03 Completed Comprehensive Metabolic Panel Stat Lab 02/29/24 15:03 Completed Urinalysis and Microscopic Stat Lab 02/29/24 12:52 Completed Medical Decision Narrative: 68-year-old male presents the emergency department with decreased urinary frequency, pain and swelling at the urethral tip, differential diagnose include but not limited toAcute UTI, phimosis, paraphimosis, balanoposthitis, urethritis. I discussed patient case with attending physician Dr. De Dios Obtain basic laboratory studies and urinalysis as well as bladder scan to look for any urinary retention. CMP is unremarkable, CBC unremarkable. I discussed these results with the patient p.m. at the bedside patient has follow-up with urologist on Wednesday of next week I advised him to keep this appointment, patient has phimosis versus balanitis, patient has no acute urinary retention, with only a 130 mL postvoid residual. Recommend strict ED return precautions follow-up urology, will prescribe hydrocortisone cream as well as clotrimazole to treat for balanitis/phimosis. Patient family voiced understanding and the current treatment plan/discharge plan. <Ernie De Dios MD - Last Filed: 03/03/24 07:23> Vital Signs: 02/29/24 12:17 02/29/24 13:46 02/29/24 14:00 Temperature 97.8 F Temperature Source Oral Pulse Rate 87 85 Pulse Rate [Radial] 87 Respiratory Rate 18 18 Blood Pressure 118/65 113/76 Blood Pressure [Right Arm] 125/78 Blood Pressure Mean 82 85 Blood Pressure Mean [Right Arm] 93 Blood Pressure Source Blood Pressure Source [Right Arm] Automatic Cuff Blood Pressure Position Blood Pressure Position [Right Arm] Sitting 02 Sat by Pulse Oximetry 99 96 95 Oxygen Delivery Method Room Air Room Air 02/29/24 14:15 02/29/24 14:30 02/29/24 14:45 Temperature Temperature Source Pulse Rate 91 H 91 H 89 Pulse Rate [Radial] Respiratory Rate 16 18 18 Blood Pressure 132/78 123/70 132/80 Blood Pressure [Right Arm] Blood Pressure Mean 92 82 89 Blood Pressure Mean [Right Arm] Blood Pressure Source Blood Pressure Source [Right Arm] Blood Pressure Position Blood Pressure Position [Right Arm] 02 Sat by Pulse Oximetry 93 L 93 L 95 Oxygen Delivery Method 02/29/24 15:22 02/29/24 15:31 02/29/24 16:00 Temperature 97.9 F Temperature Source Oral Pulse Rate 89 90 88 Pulse Rate [Radial] Respiratory Rate 18 Blood Pressure 142/64 H 124/71 127/82 Blood Pressure [Right Arm] Blood Pressure Mean Blood Pressure Mean [Right Arm] Blood Pressure Source Automatic Cuff Blood Pressure Source [Right Arm] Blood Pressure Position Sitting Blood Pressure Position [Right Arm] 02 Sat by Pulse Oximetry 95 95 Oxygen Delivery Method Room Air Room Air Room Air Lab Data Lab Results 02/29/24 12:52: Urine Color Yellow, Urine Appearance Clear, Urine pH 5.5, Ur Specific [place] >= 1.030, Urine Protein Negative, Urine Glucose (UA) 2+, Urine Ketones Negative, Urine Blood Negative, Urine Nitrate Negative, Urine Bilirubin Negative, Urine Urobilinogen 0.2, Ur Leukocyte Esterase Negative, Urine RBC Occasional, Urine WBC Occasional, Ur Squamous Epith Cells 3-5, Urine Bacteria Trace 02/29/24 15:03: WBC 4.9, RBC 4.28 L, Hgb 13.1 L, Hct 38.2 L, MCV 89.3, MCH 30.6, MCHC 34.3, RDW 13.5, Plt Count 205, MPV 8.7, Neut % (Auto) 58.5, Lymph % (Auto) 24.5, [place] % (Auto) 13.5 H, Eos % (Auto) 2.7, Baso % (Auto) 0.6, Neut # (Auto) 2.9, Lymph # (Auto) 1.2, D[place] # (Auto) 0.7, Eos # (Auto) 0.1, Baso # (Auto) 0.0, Sodium 136, Potassium 4.0, Chloride 104, Carbon Dioxide 24, Anion Gap 12.0, BUN 21 H, Creatinine 1.00, Estimated Creat Clear 92, Estimated GFR 74, Est GFR ( Amer) 90, Glucose 279 H, Calcium 9.1, Total Bilirubin 0.6, AST 36, ALT 34, Alkaline Phosphatase 37 L, Total Protein 6.1 L, Albumin 3.9, Globulin 2.2, Albumin/Globulin Ratio 1.8 Orders (Tests/Meds): ORDERS Category Date Time Status Complete Blood Count Auto Diff Stat Lab 02/29/24 15:03 Completed Comprehensive Metabolic Panel Stat Lab 02/29/24 15:03 Completed Urinalysis and Microscopic Stat Lab 02/29/24 12:52 Completed Medical Decision Narrative: 68-year-old male presents the emergency department with decreased urinary frequency, pain and swelling at the urethral tip, differential diagnose include but not limited toAcute UTI, phimosis, paraphimosis, balanoposthitis, urethritis. I discussed patient case with attending physician Dr. De Dios Obtain basic laboratory studies and urinalysis as well as bladder scan to look for any urinary retention. CMP is unremarkable, CBC unremarkable. I discussed these results with the patient p.m. at the bedside patient has follow-up with urologist on Wednesday of next week I advised him to keep this appointment, patient has phimosis versus balanitis, patient has no acute urinary retention, with only a 130 mL postvoid residual. Recommend strict ED return precautions follow-up urology, will prescribe hydrocortisone cream as well as clotrimazole to treat for balanitis/phimosis. Patient family voiced understanding and the current treatment plan/discharge plan. I independently interviewed and examined patient. Consistent with phimosis in the setting of balanitis. I was consulted by the AMY, and we discussed the complexity of the problems being addressed. I approved the treatment and management plan for this patient's care in the Emergency Department, thus performing a substantive portion of the medical decision making.Close return precautions were discussed. Ernie De Dios MD Critical Care <SAUNDRA Stone - Last Filed: 02/29/24 16:00> Critical Care Time Critical Care Time: No
--- NOTE | 2024-02-29 13:18 | PC.NURSE ---
PT PLACED IN GOWN
--- NOTE | 2024-02-29 13:21 | PC.NURSE ---
PA AT BEDSIDE
[2024-02-29 13:40] LABS: Microscopic, Urine URINE MICROSCOPIC (MICROSCOPIC)
[2024-02-29 13:42] LABS: Appearance,Urine CLEAR (Clear); Bilirubin,Urine Negative (Negative); Blood, Urine Negative (Negative); Color,Urine YELLOW (Yellow); Glucose,Urine (UA) 2+ (Negative); Ketones,Urine Negative (Negative); Leukocyte Esterase,Urine Negative (Negative); Nitrate,Urine Negative (Negative); PH,Urine 5.5 (5.0-8.5); Protein,Urine Negative (Negative); Specific Gravity, Urine >= 1.030 (1.005-1.030); Urobilinogen,Urine 0.2 EU/dl (0.2)
[2024-02-29 13:51] LABS: Bacteria,Urine Trace /lpf; RBC,Urine Occasional #/hpf (0-3); WBC,Urine Occasional #/hpf (0-3)
--- NOTE | 2024-02-29 15:06 | PC.NURSE ---
green red and purple tubes drawn and sent to lab, straight stick.
[2024-02-29 15:13] LABS: Basophils % 0.6 % (0.1-2.0); Eosinophils # 0.1 K/mm3 (0.0-0.4); Eosinophils % 2.7 % (0.1-12.0); Hematocrit 38.2 % (42.0-52.0); Hemoglobin 13.1 g/dL (14.1-18.0); Lymphocytes # 1.2 K/mm3 (0.7-4.5); Lymphocytes % 24.5 % (10-50); Mean Corpuscular HGB Conc 34.3 g/dL (31.8-35.4); Mean Corpuscular Hemoglobin 30.6 pg (27.0-31.2); Mean Corpuscular Volume 89.3 fl (80-94); Mean Platelet Volume 8.7 fl (7.4-10.4); Monocytes # 0.7 K/mm3 (0.1-1.0); Monocytes % 13.5 % (1.7-9.3); Neutrophils # 2.9 K/mm3 (1.8-7.8); Neutrophils % 58.5 % (37.0-80.0); Platelet Count 205 K/mm3 (142-424); Red Blood Count 4.28 M/mm3 (4.60-6.20); Red Cell Distribution Width 13.5 % (11.5-17.5); White Blood Count 4.9 K/mm3 (4.8-10.8)
--- NOTE | 2024-02-29 15:15 | PC.NURSE ---
bladder scan showed 115 ml, er provider made aware
[2024-02-29 15:29] LABS: Alanine Aminotransferase 34 U/L (12-78); Albumin Level 3.9 g/dl (3.5-5.0); Albumin/Globulin Ratio 1.8 (1.1-1.8); Alkaline Phosphatase 37 U/L (38-126); Aspartate Amino Transferase 36 U/L (17-59); Bilirubin,Total 0.6 mg/dl (0.2-1.3); Blood Urea Nitrogen 21 mg/dl (9-20); Calcium 9.1 mg/dl (8.4-10.2); Carbon Dioxide 24 mmol/L (22.0-30.0); Chloride 104 mmol/L (98-107); Creatinine Clearance Estimated 92 mL/min (50-200); Estimated Glomerular Filt Rate 74 ml/min (>60); GFR (African American) 90 ML/MIN (>60); Globulin 2.2 g/dL (1.3-3.2); Glucose 279 mg/dl (74-100); Sodium 136 mmol/L (136-145); Total Protein,Serum 6.1 g/dl (6.3-8.2)
== END 2024-02-29 16:15 | disposition home or self-care (01) ==
PROVIDERS: Physician Assistant; Emergency Provider Emergency Medicine
DX: N47.1 Phimosis (principal); N50.89 Other specified disorders of the male genital organs; R33.9 Retention of urine, unspecified
CPT/HCPCS: 80053; 81001; 85025; 99283